=== PATIENT | male | born 1945 | race Caucasian/White ===

== ENCOUNTER 2019-01-23 11:42 | Emergency (ER) | payer MEDICARE ==
--- OUTSIDE RECORDS SUMMARY | 2019-01-23 11:45 | XMS REPORT | Clinical Summary ---
:1945 Author Organization [facility] Address [address] [place] [address] Care Team Providers Name Role Phone Shalonda Haro MD Primary Care Provider Hunter Givens Unavailable Allergies No Known Allergies Medications Medication Sig Dispensed Refills Start Date End Date Status alendronate (FOSAMAX) Take 70 mg by 0 Active 70 MG tablet mouth every 7 days Take in the morning with a full glass of water, on an empty stomach, and do not take anything else by mouth or lie down for the next 30 min. . gabapentin (NEURONTIN) Take 100 mg by 0 Active 100 MG capsule mouth 2 (two) times daily. levothyroxine Take 100 mcg by 0 Active (SYNTHROID, mouth Every LEVOTHROID) 100 MCG morning on an tablet empty stomach. lisinopril Take 20 mg by 0 Active (PRINIVIL,ZESTRIL) 20 mouth daily. MG tablet naproxen Take 220 mg by 0 Active (ALEVE,ANAPROX,MIDOL) mouth every 12 220 MG tablet (twelve) hours as needed. ketoconazole (NIZORAL) Apply topically 0 Active 2 % cream daily. aspirin 81 MG EC Take 81 mg by 0 Active tablet mouth daily. Missing or every 3 (three) 0 Active Non-Formulary months Injection Medication Elogard . minocycline (DYNACIN) Take 100 mg by 0 Active 100 MG tablet mouth 2 (two) times daily. Active Problems Problem Noted Date Carotid artery stenosis 07/22/2017 Family History Medical History Relation Name Comments Heart disease Brother Heart disease Father Stroke Sister Relation Name Status Comments Brother Father Sister Social History Tobacco Use Types Packs/Day Years Used Date Former Smoker 1 35 Quit: 2014 Smokeless Tobacco: Never Used Alcohol Use Drinks/Week oz/Week Comments No Sex Assigned at Date Recorded Not on file Job Start Date Occupation Industry Not on file Not on file Not on file Travel History Travel Start Travel End No recent travel history available. Last Filed Vital Signs Not on file Plan of Treatment Not on file Implants Implanted Type Area Lead Caster Device Shelf Model / Identifier Expiration Serial / Lot Date Grtima Hemshld Dbl William 0.3x3.0in [id number] - [id number] Graft/P Right: GETINGE 01/29/2022 [id number] / Implanted: Qty: 1 on 07/22/2017 by Lior Costa MD [facility] Arterial IND: MAQUET:CV [id number] / [id number] Results Not on fileafter 01/22/2018 Insurance Payer Benefit Plan / Group Subscriber ID Type Phone Address [employer] - MEDICARE AARP/MEDICARE COMPLETE xxxxxxxxx MGD CARE Advance Directives For more information, please contact:[address] [phone] Code Status Date Activated Date Inactivated Comments Full Code 07/22/2017 8:55 AM 07/23/2017 5:10 PM This code status was determined by: Patient Full Code 07/22/2017 6:23 AM 07/22/2017 8:55 AM This code status was determined by: Patient
--- OUTSIDE RECORDS SUMMARY | 2019-01-23 11:45 | XMS REPORT ---
:1945 Author Organization [facility] Address [address] [place] [address] [address]. M[address] [place] [address] Care Team Providers Name Role Phone GRISEL COSTA Unavailable Unavailable Problems This patient has no known problems. Allergies, Adverse Reactions, Alerts This patient has no known allergies or adverse reactions. Medications This patient has no known medications. Results Test Description Test Time Test Comments Text Results Atomic Results Result Comments TISSUE EXAM 2017-07-25 11:47:00 Surgical Pathology Report Case: [id number] Authorizing Provider: Grisel Costa MD Collected: 07/22/2017 0813 Ordering Location: [facility] Received: 07/22/2017 0955 PERIOPERATIVE SERVICES Pathologist: Fidel Lujan MD Specimen: Plaque, RIGHT CAROTID PLAQUE ARTERY, RIGHT CAROTID, ENDARTERECTOMY:CALCIFIC ATHEROSCLEROTIC PLAQUE Signing Pathologist Direct Phone Line: [phone] signed by Fidel Lujan MD on 07/25/2017 at 11:47 [id number]; [id number] carotid plaqueThe specimen is received in saline labeled with the patient's name labeled "right carotid plaque" and consists of a calcified tubular shaped segment of tissue measuring 2 cm in length x 0.8 cm in diameter. Continuous Pickling Line Pickler sections are submitted A1 for decalcification. CG/pl Carotid stenosisPerformed BASIC METABOLIC PANEL 2017-07-23 10:50:00 Test Item Value Reference Range Comments SODIUM (BEAKER) (test 138 meq/L 136-145 ggap=155) POTASSIUM (BEAKER) (test 4.3 meq/L 3.5-5.1 hvqk=213) CHLORIDE (BEAKER) (test 109 meq/L 98-107 cfhb=164) CO2 (BEAKER) (test 22 meq/L 22-29 qufd=535) BLOOD UREA NITROGEN 11 mg/dL 7-21 (BEAKER) (test wmee=425) CREATININE (BEAKER) (test 0.75 mg/dL 0.57-1.25 rpqx=790) GLUCOSE RANDOM (BEAKER) 121 mg/dL 70-105 (test qfrk=121) CALCIUM (BEAKER) (test 7.9 mg/dL 8.4-10.2 wxfd=959) EGFR (BEAKER) (test 103 mL/min/1.73 sq m ESTIMATED GFR IS NOT oxua=8799) ACCURATE CREATININE CLEARANCE IN PREDICTING GLOMERULAR FILTRATION RATE. ESTIMATED GFR IS NOT APPLICABLE FOR DIALYSIS PATIENTS. [id number] 05:55:00 Test Item Value Reference Range Comments PROTIME (BEAKER) (test wkej=653) 13.8 seconds 11.7-14.7 INR (BEAKER) (test uoub=805) 1.1 <=5.9 PARTIAL THROMBOPLASTIN TIME (BEAKER) (test 39.0 seconds 22.5-36.0 mrfz=960) RECOMMENDED COUMADIN/WARFARIN INR THERAPY RANGESSTANDARD DOSE: 2.0 - 3.0 Includes: PROPHYLAXIS forvenous thrombosis, systemic embolization; TREATMENT for venous thrombosis and/or pulmonary embolus.HIGH RISK: Target INR is 2.5-3.5 for patients with mechanical heart valves.CBC (HEMOGRAM ONLY)2017-07-23 05:47:00 Test Item Value Reference Range Comments WHITE BLOOD CELL COUNT (BEAKER) (test trog=957) 7.3 K/ L 3.5-10.5 RED BLOOD CELL COUNT (BEAKER) (test uqpd=484) 3.70 M/ L 4.63-6.08 HEMOGLOBIN (BEAKER) (test swiv=817) 11.8 GM/DL 13.7-17.5 HEMATOCRIT (BEAKER) (test koxx=466) 34.9 % 40.1-51.0 MEAN CORPUSCULAR VOLUME (BEAKER) (test ciby=614) 94.3 fL 79.0-92.2 MEAN CORPUSCULAR HEMOGLOBIN (BEAKER) (test 31.9 pg 25.7-32.2 fypp=025) MEAN CORPUSCULAR HEMOGLOBIN CONC (BEAKER) (test 33.8 GM/DL 32.3-36.5 ddqg=407) RED CELL DISTRIBUTION WIDTH (BEAKER) (test 12.7 % 11.6-14.4 jybc=929) PLATELET COUNT (BEAKER) (test iywx=823) 166 K/CU MM 150-450 MEAN PLATELET VOLUME (BEAKER) (test cxqe=013) 10.2 fL 9.4-12.4 NUCLEATED RED BLOOD CELLS (BEAKER) (test 0 /100 WBC 0-0 eyxi=096) BASIC METABOLIC [id number] 10:44:00 Test Item Value Reference Range Comments SODIUM (BEAKER) (test 141 meq/L 136-145 ppcq=608) POTASSIUM (BEAKER) (test 4.6 meq/L 3.5-5.1 jdsp=437) CHLORIDE (BEAKER) (test 111 meq/L 98-107 vbnt=442) CO2 (BEAKER) (test 21 meq/L 22-29 acxi=344) BLOOD UREA NITROGEN 12 mg/dL 7-21 (BEAKER) (test hkkm=499) CREATININE (BEAKER) (test 0.76 mg/dL 0.57-1.25 ewys=678) GLUCOSE RANDOM (BEAKER) 128 mg/dL 70-105 (test khba=221) CALCIUM (BEAKER) (test 8.0 mg/dL 8.4-10.2 rdfo=904) EGFR (BEAKER) (test 101 mL/min/1.73 sq m ESTIMATED GFR IS NOT fnzl=3377) ACCURATE CREATININE CLEARANCE IN PREDICTING GLOMERULAR FILTRATION RATE. ESTIMATED GFR IS NOT APPLICABLE FOR DIALYSIS PATIENTS. HEMOGLOBIN [id number] 09:45:00 Test Item Value Reference Range Comments HEMOGLOBIN A1C (BEAKER) (test vbkw=388) 6.1 % 4.3-6.1 CBC W/PLT COUNT & AUTO [id number] 09:23:00 Test Item Value Reference Range Comments WHITE BLOOD CELL COUNT (BEAKER) (test ncic=827) 7.9 K/ L 3.5-10.5 RED BLOOD CELL COUNT (BEAKER) (test rtnz=461) 4.12 M/ L 4.63-6.08 HEMOGLOBIN (BEAKER) (test zneu=609) 12.9 GM/DL 13.7-17.5 HEMATOCRIT (BEAKER) (test krey=430) 37.8 % 40.1-51.0 MEAN CORPUSCULAR VOLUME (BEAKER) (test xxyl=320) 91.7 fL 79.0-92.2 MEAN CORPUSCULAR HEMOGLOBIN (BEAKER) (test 31.3 pg 25.7-32.2 cjjx=701) MEAN CORPUSCULAR HEMOGLOBIN CONC (BEAKER) (test 34.1 GM/DL 32.3-36.5 klcf=141) RED CELL DISTRIBUTION WIDTH (BEAKER) (test 12.4 % 11.6-14.4 bjxq=996) PLATELET COUNT (BEAKER) (test nosq=617) 188 K/CU MM 150-450 MEAN PLATELET VOLUME (BEAKER) (test gres=477) 10.2 fL 9.4-12.4 NUCLEATED RED BLOOD CELLS (BEAKER) (test 0 /100 WBC 0-0 woyu=621) NEUTROPHILS RELATIVE PERCENT (BEAKER) (test 74 % bgap=314) LYMPHOCYTES RELATIVE PERCENT (BEAKER) (test 16 % sncb=467) MONOCYTES RELATIVE PERCENT (BEAKER) (test 7 % pdec=213) EOSINOPHILS RELATIVE PERCENT (BEAKER) (test 2 % ffkp=709) BASOPHILS RELATIVE PERCENT (BEAKER) (test 1 % lijs=840) NEUTROPHILS ABSOLUTE COUNT (BEAKER) (test 5.81 K/ L 1.78-5.38 goaq=371) LYMPHOCYTES ABSOLUTE COUNT (BEAKER) (test 1.27 K/ L 1.32-3.57 sqqn=049) MONOCYTES ABSOLUTE COUNT (BEAKER) (test 0.56 K/ L 0.30-0.82 ryyk=052) EOSINOPHILS ABSOLUTE COUNT (BEAKER) (test 0.14 K/ L 0.04-0.54 ptrc=548) BASOPHILS ABSOLUTE COUNT (BEAKER) (test 0.04 K/ L 0.01-0.08 drvl=478) IMMATURE GRANULOCYTES-RELATIVE PERCENT (BEAKER) 1 % 0-1 (test rpbg=9528) BLOOD GAS, [id number] 09:10:00 Test Item Value Reference Range Comments PH ARTERIAL (BEAKER) (test lkqx=657) 7.37 7.35-7.45 PCO2 ARTERIAL (BEAKER) (test yqpq=474) 39 mmHg 35-45 PO2 ARTERIAL (BEAKER) (test lyrz=325) 209 mmHg 80-90 O2 SATURATION ARTERIAL (BEAKER) (test tawi=435) 99.4 % 96.0-97.0 HCO3 ARTERIAL (BEAKER) (test jmcm=902) 22 mmol/L 21-29 BASE EXCESS ARTERIAL (BEAKER) (test ttio=335) -3.2 mmol/L -2.0-3.0 PATIENT TEMPERATURE (BEAKER) (test qqej=5252) 36.0 C FIO2 (BEAKER) (test nfza=1754) 40.0 % BASIC METABOLIC [id number] 10:37:00 Test Item Value Reference Range Comments SODIUM (BEAKER) (test 141 meq/L 136-145 gyhc=302) POTASSIUM (BEAKER) (test 4.4 meq/L 3.5-5.1 qmeq=071) CHLORIDE (BEAKER) (test 104 meq/L 98-107 pvau=516) CO2 (BEAKER) (test 28 meq/L 22-29 ctfo=475) BLOOD UREA NITROGEN 12 mg/dL 7-21 (BEAKER) (test sagt=342) CREATININE (BEAKER) (test 0.79 mg/dL 0.57-1.25 vzye=395) GLUCOSE RANDOM (BEAKER) 125 mg/dL 70-105 (test qeoh=463) CALCIUM (BEAKER) (test 9.3 mg/dL 8.4-10.2 szug=623) EGFR (BEAKER) (test 97 mL/min/1.73 sq m ESTIMATED GFR IS NOT djza=7807) ACCURATE CREATININE CLEARANCE IN PREDICTING GLOMERULAR FILTRATION RATE. ESTIMATED GFR IS NOT APPLICABLE FOR DIALYSIS PATIENTS. RAD, CHEST, 2 [id number] 10:21:00Reason for Exam:->Pre-OpFINAL REPORT Chest 2 views 07/21/2017 10:21 AM CLINICAL HISTORY: Pre- Op COMPARISON: None available FINDINGS: The lungs are clear. Cardiomediastinal contours are within normal limits. The central pulmonary vasculature is not engorged. The visualized skeleton is intact. IMPRESSION: No acute radiographic abnormalities. Signed: Jed Vazquez Verified Date/Time: 07/21/2017 10:21:46 Reading Location: [facility] Reading Room PROTHROMBIN [id number] 10:11:00 Test Item Value Reference Range Comments PROTIME (BEAKER) (test qjsb=664) 13.8 seconds 11.7-14.7 INR (BEAKER) (test wkvr=350) 1.1 <=5.9 RECOMMENDED COUMADIN/WARFARIN INR THERAPY RANGESSTANDARD DOSE: 2.0 - 3.0 Includes: PROPHYLAXIS forvenous thrombosis, systemic embolization; TREATMENT for venous thrombosis and/or pulmonary embolus.HIGH RISK: Target INR is 2.5-3.5 for patients with mechanical heart valves.CBC W/PLT COUNT & AUTO [id number] 10:05:00 Test Item Value Reference Range Comments WHITE BLOOD CELL COUNT (BEAKER) (test lors=533) 6.3 K/ L 3.5-10.5 RED BLOOD CELL COUNT (BEAKER) (test wxho=752) 4.69 M/ L 4.63-6.08 HEMOGLOBIN (BEAKER) (test xhvo=170) 14.6 GM/DL 13.7-17.5 HEMATOCRIT (BEAKER) (test mlbl=197) 43.2 % 40.1-51.0 MEAN CORPUSCULAR VOLUME (BEAKER) (test onhu=494) 92.1 fL 79.0-92.2 MEAN CORPUSCULAR HEMOGLOBIN (BEAKER) (test 31.1 pg 25.7-32.2 bkgw=950) MEAN CORPUSCULAR HEMOGLOBIN CONC (BEAKER) (test 33.8 GM/DL 32.3-36.5 xoeo=760) RED CELL DISTRIBUTION WIDTH (BEAKER) (test 12.6 % 11.6-14.4 wnjl=688) PLATELET COUNT (BEAKER) (test rafo=349) 224 K/CU MM 150-450 MEAN PLATELET VOLUME (BEAKER) (test rhqq=918) 10.3 fL 9.4-12.4 NUCLEATED RED BLOOD CELLS (BEAKER) (test 0 /100 WBC 0-0 wfbu=580) NEUTROPHILS RELATIVE PERCENT (BEAKER) (test 75 % byat=255) LYMPHOCYTES RELATIVE PERCENT (BEAKER) (test 16 % pial=821) MONOCYTES RELATIVE PERCENT (BEAKER) (test 7 % pbxi=835) EOSINOPHILS RELATIVE PERCENT (BEAKER) (test 1 % ncor=388) BASOPHILS RELATIVE PERCENT (BEAKER) (test 1 % mbib=209) NEUTROPHILS ABSOLUTE COUNT (BEAKER) (test 4.74 K/ L 1.78-5.38 vgrd=230) LYMPHOCYTES ABSOLUTE COUNT (BEAKER) (test 1.00 K/ L 1.32-3.57 iqar=150) MONOCYTES ABSOLUTE COUNT (BEAKER) (test 0.46 K/ L 0.30-0.82 awhx=525) EOSINOPHILS ABSOLUTE COUNT (BEAKER) (test 0.05 K/ L 0.04-0.54 gvcv=839) BASOPHILS ABSOLUTE COUNT (BEAKER) (test 0.05 K/ L 0.01-0.08 phvs=251) IMMATURE GRANULOCYTES-RELATIVE PERCENT (BEAKER) 0 % 0-1 (test kvxx=8186)
--- NOTE | 2019-01-23 12:24 | EDPHYS ---
Physician Documentation [facility] Name: Júnior Arora Age: 73 yrs Sex: Male : 1945 Arrival Date: 01/23/2019 Time: 11:43 Bed 14 Private MD: Shalonda Haro ED Physician Jorden Sahni HPI: 01/23 12:31 This 73 yrs old Male presents to ER via Ambulatory with complaints of SWOLLEN snw EAR. 12:31 Onset: The symptoms/episode began/occurred suddenly, 1 day(s) ago, and became snw persistent. Associated signs and symptoms: Pertinent positives: The patient does not have any pertinent positive signs or symptoms associated with pediatric illness. Modifying factors: The patient symptoms are alleviated by nothing. The patient has not experienced similar symptoms in the past. It is unknown whether or not the patient has recently seen a physician. Historical: - Allergies: 11:50 No Known Allergies; aa5 - PMHx: 11:50 Hypertension; Hypothyroidism; Diabetes - NIDDM; prostate cancer with radiation tx 3 aa5 years ago; - PSHx: 11:50 Carotid surgery; aa5 - Immunization history:: Flu vaccine is not up to date. - Social history:: Smoking status: Patient/guardian denies using tobacco. - Ebola Screening: : No symptoms or risks identified at this time. ROS: 12:30 Constitutional: Negative for fever, chills, and weight loss, Eyes: Negative for injury, snw pain, redness, and discharge, Neck: Negative for injury, pain, and swelling, Cardiovascular: Negative for chest pain, palpitations, and edema, Respiratory: Negative for shortness of breath, cough, wheezing, and pleuritic chest pain, Abdomen/GI: Negative for abdominal pain, nausea, vomiting, diarrhea, and constipation, Back: Negative for injury and pain, : Negative for injury, bleeding, discharge, and swelling, MS/Extremity: Negative for injury and deformity, Skin: Negative for injury, rash, and discoloration, Neuro: Negative for headache, weakness, numbness, tingling, and seizure, Psych: Negative for depression, anxiety, suicide ideation, homicidal ideation, and hallucinations. 12:30 ENT: Positive for ear pain, left ear swelling. Exam: 12:28 Constitutional: This is a well developed, well nourished patient who is awake, alert, snw and in no acute distress. Head/Face: Normocephalic, atraumatic. Eyes: Pupils equal round and reactive to light, extra-ocular motions intact. Lids and lashes normal. Conjunctiva and sclera are non-icteric and not injected. Cornea within normal limits. Periorbital areas with no swelling, redness, or edema. ENT: Nares patent. No nasal discharge, no septal abnormalities noted. Tympanic membranes are normal and external auditory canals are clear. Left pinna and auditory canal with edema, increased warmth, mild erythema. Oropharynx with no redness, swelling, or masses, exudates, or evidence of obstruction, uvula midline. Mucous membranes moist. Neck: Trachea midline, no thyromegaly or masses palpated, and no cervical lymphadenopathy. Supple, full range of motion without nuchal rigidity, or vertebral point tenderness. No Meningismus. Chest/axilla: Normal chest wall appearance and motion. Nontender with no deformity. No lesions are appreciated. Cardiovascular: Regular rate and rhythm with a normal S1 and S2. No gallops, murmurs, or rubs. Normal PMI, no JVD. No pulse deficits. Respiratory: Lungs have equal breath sounds bilaterally, clear to auscultation and percussion. No rales, rhonchi or wheezes noted. No increased work of breathing, no retractions or nasal flaring. Abdomen/GI: Soft, non-tender, with normal bowel sounds. No distension or tympany. No guarding or rebound. No evidence of tenderness throughout. Back: No spinal tenderness. No costovertebral tenderness. Full range of motion. Skin: Warm, dry with normal turgor. Normal color with no rashes, no lesions, and no evidence of cellulitis. MS/ Extremity: Pulses equal, no cyanosis. Neurovascular intact. Full, normal range of motion. Neuro: Awake and alert, GCS 15, oriented to person, place, time, and situation. Cranial nerves II-XII grossly intact. Motor strength 5/5 in all extremities. Sensory grossly intact. Cerebellar exam normal. Normal gait. Vital Signs: 11:51 BP 122 / 83; Pulse 71; Resp 16 S; Temp 97.6(O); Pulse Ox 94% on R/A; Weight 81.19 kg aa5 (R); Height 5 ft. 10 in. (177.80 cm) (R); Pain 0/10; 11:51 Body Mass Index 25.68 (81.19 kg, 177.80 cm) aa5 MDM: 11:59 Patient medically screened. live 12:27 Data reviewed: vital signs, nurses notes. Data interpreted: Pulse oximetry: on room air snw is 94 %. Interpretation: acceptable. Counseling: I had a detailed discussion with the patient and/or guardian regarding: the historical points, exam findings, and any diagnostic results supporting the discharge/admit diagnosis, the presence of at least one elevated blood pressure reading (>120/80) during this emergency department visit, lab results, the need for outpatient follow up, to return to the emergency department if symptoms worsen or persist or if there are any questions or concerns that arise at home. Special discussion: I have referred the patient to see his PCP for further evaluation of high blood pressure. Based on the history and exam findings, there is no indication for further emergent testing or inpatient evaluation. I discussed with the patient/guardian the need to see the ENT specialist for further evaluation of the symptoms. I discussed with the patient/guardian the need to see the primary care provider for further evaluation of the symptoms. Administered Medications: 12:37 Drug: Rocephin (cefTRIAXone) 1 grams Route: IM; Site: right gluteus; aa5 13:06 Follow up: Response: No adverse reaction aa5 12:37 Drug: Cipro 500 mg Route: PO; aa5 13:06 Follow up: Response: No adverse reaction aa5 12:45 Drug: [place] 5 mg-325 mg 1 tabs Route: PO; aa5 13:06 Follow up: Response: No adverse reaction aa5 Disposition: 01/23/19 12:23 Discharged to Home. Impression: Malignant otitis externa, left ear. - Condition is Stable. - Discharge Instructions: Cellulitis, Adult, Otitis Externa. - Prescriptions for cefdinir 300 mg Oral capsule - take 2 capsule by ORAL route once daily; 28 capsule. Cipro 500 mg Oral Tablet - take 1 tablet by ORAL route every 12 hours for 10 days; 20 tablet. Diclofenac Sodium 75 mg Oral Tablet, Delayed Release (E.C.) - take 1 tablet by ORAL route 2 times per day; 30 tablet. - Medication Reconciliation Form, Thank You Letter, Antibiotic Education, Prescription Opioid Use form. - Follow up: Shalonda Haro MD; When: 2 - 3 days; Reason: Recheck today's complaints, Continuance of care, Re-evaluation by your physician. Follow up: Emergency Department; When: As needed; Reason: Worsening of condition. Addendum: 01/26/2019 08:58 Co-signature as Attending Physician, Jorden Sahni MD I agree with the assessment and c kiser plan of care. Signatures: Jorden Sahni MD MD cha Therrien, Shelly, TURNER OFF-C TURNER OFF-Csnw Shakila Pena, RN RN aa5 Corrections: (The following items were deleted from the chart) 01/23 13:07 12:23 01/23/2019 12:23 Discharged to Home. Impression: Malignant otitis externa, left aa5 ear. Condition is Stable. Forms are Medication Reconciliation Form, Thank You Letter, Antibiotic Education, Prescription Opioid Use. Follow up: Shalonda Haro; When: 2 - 3 days; Reason: Recheck today's complaints, Continuance of care, Re-evaluation by your physician. Follow up: Emergency Department; When: As needed; Reason: Worsening of condition. snw
--- NOTE | 2019-01-23 12:24 | ER ---
Nurse's Notes [facility] Name: Júnior Arora Age: 73 yrs Sex: Male : 1945 Arrival Date: 01/23/2019 Time: 11:43 Bed 14 Private MD: Shalonda Haro Diagnosis: Malignant otitis externa, left ear Presentation: 01/23 11:50 Presenting complaint: Patient states: redness and swelling to left ear that began aa5 yesterday. 11:50 Transition of care: patient was not received from another setting of care. Onset of aa5 symptoms was December 2018. Risk Assessment: Do you want to hurt yourself or someone else? Patient reports no desire to harm self or others. Initial Sepsis Screen: Does the patient meet any 2 criteria? No. Patient's initial sepsis screen is negative. Does the patient have a suspected source of infection? No. Patient's initial sepsis screen is negative. Care prior to arrival: None. 11:50 Method Of Arrival: Ambulatory aa5 11:50 Acuity: JUAN PABLO 3 aa5 Historical: - Allergies: 11:50 No Known Allergies; aa5 - PMHx: 11:50 Hypertension; Hypothyroidism; Diabetes - NIDDM; prostate cancer with radiation tx 3 aa5 years ago; - PSHx: 11:50 Carotid surgery; aa5 - Immunization history:: Flu vaccine is not up to date. - Social history:: Smoking status: Patient/guardian denies using tobacco. - Ebola Screening: : No symptoms or risks identified at this time. Screenin:51 Abuse screen: Denies threats or abuse. Nutritional screening: No deficits noted. aa5 Tuberculosis screening: No symptoms or risk factors identified. Fall Risk None identified. Assessment: 11:50 General: Appears comfortable, Behavior is calm, cooperative. Pain: Denies pain. Neuro: aa5 Level of Consciousness is awake, alert, obeys commands, Oriented to person, place, time, situation. Cardiovascular: Patient's skin is warm and dry. Respiratory: Airway is patent Respiratory effort is even, unlabored, Respiratory pattern is regular, symmetrical. GI: No signs and/or symptoms were reported involving the gastrointestinal system. : No signs and/or symptoms were reported regarding the genitourinary system. EENT: redness and swelling noted to left ear . Derm: Skin is pink, warm \T\ dry. Musculoskeletal: Range of motion: intact in all extremities. 12:37 Reassessment: Patient is alert, oriented x 3, equal unlabored respirations, skin aa5 warm/dry/pink. 13:06 Reassessment: Patient is alert, oriented x 3, equal unlabored respirations, skin aa5 warm/dry/pink. Vital Signs: 11:51 BP 122 / 83; Pulse 71; Resp 16 S; Temp 97.6(O); Pulse Ox 94% on R/A; Weight 81.19 kg aa5 (R); Height 5 ft. 10 in. (177.80 cm) (R); Pain 0/10; 11:51 Body Mass Index 25.68 (81.19 kg, 177.80 cm) aa5 ED Course: 11:43 Patient arrived in ED. ag5 11:44 Shalonda Haro MD is Private Physician. ag5 11:50 Do Patino [facility]C [facility] snw 11:50 Jorden Sahni MD is Attending Physician. snw 11:50 Arm band placed on Patient placed in an exam room, on a stretcher. aa5 11:50 Patient has correct armband on for positive identification. Bed in low position. Call aa5 light in reach. Side rails up X 1. Adult w/ patient. 11:56 Shakila Pena, RN is Primary Nurse. aa5 12:14 Triage completed. aa5 12:22 Shalonda Haro MD is Referral Physician. snw 13:07 No provider procedures requiring assistance completed. Patient did not have IV access aa5 during this emergency room visit. Administered Medications: 12:37 Drug: Rocephin (cefTRIAXone) 1 grams Route: IM; Site: right gluteus; aa5 13:06 Follow up: Response: No adverse reaction aa5 12:37 Drug: Cipro 500 mg Route: PO; aa5 13:06 Follow up: Response: No adverse reaction aa5 12:45 Drug: [place] 5 mg-325 mg 1 tabs Route: PO; aa5 13:06 Follow up: Response: No adverse reaction aa5 Outcome: 12:23 Discharge ordered by . snw 13:07 Discharged to home ambulatory, with significant other. aa5 13:07 Condition: stable 13:07 Discharge instructions given to patient, Instructed on discharge instructions, follow up and referral plans. medication usage, Demonstrated understanding of instructions, follow-up care, medications, Prescriptions given X 3. 13:07 Patient left the ED. aa5 Signatures: Do Patino, SMOKEHOUSE WORKER-C SMOKEHOUSE WORKER-Csnw Shakila Pena, RN RN aa5 Lala Lizama ag5 Corrections: (The following items were deleted from the chart) 12:16 11:50 Acuity: JUAN PABLO 4 aa5 aa5
[2019-01-23] MEDS ORDERED: CEFTRIAXONE 1000 MG/VIAL ONE (12:45)
[2019-01-23] MEDS ORDERED: CIPROFLOXACIN HCL 500 MG TAB ONE (12:45)
[2019-01-23] MEDS ORDERED: LIDOCAINE 1% MPF 5 ML VIAL ONE (12:45)
[2019-01-23] MEDS ORDERED: HYDROCODONE/APAP 5/325 MG TAB ONE (12:59)
== END 2019-01-23 13:07 | disposition home or self-care (01) ==
LOC: ER 11:42
DX: H60.22 Malignant otitis externa, left ear (principal); I10 Essential (primary) hypertension; E03.9 Hypothyroidism, unspecified; E11.9 Type 2 diabetes mellitus without complications; C61 Malignant neoplasm of prostate; Z92.3 Personal history of irradiation
CPT/HCPCS: 96372; 99283

== ENCOUNTER 2019-09-16 18:46 | Emergency (ER) | payer MEDICARE ==
--- OUTSIDE RECORDS SUMMARY | 2019-09-16 18:49 | XMS REPORT ---
:1945 Author Organization [employer] Care Team Providers Name Role Phone Tahir Shalonda Provider Role Unavailable Allergies, Adverse Reactions, Alerts Substance Reaction Event Type N.K.D.A. Info Not Available Non Drug Allergy Problems Problem Type Condition Code Onset Dates Condition Status Problem Low back pain M54.5 Active Problem Other chronic pain G89.29 Active Problem Skin lesion L98.9 Active Problem Bilateral impacted cerumen H61.23 Active Assessment Rash and nonspecific skin eruption R21 Active Problem Acute right-sided thoracic back M54.6 Active pain Assessment Low back pain M54.5 Active Problem Rash and nonspecific skin eruption R21 Active Problem Prostate cancer C61 Active Problem Prostate disorder N42.9 Active Problem Essential hypertension I10 Active Problem Hypertriglyceridemia E78.1 Active Problem Hypothyroidism, unspecified type E03.9 Active Problem Atherosclerosis of both carotid I65.23 Active arteries Problem Dysphagia, unspecified type R13.10 Active Problem Osteoporosis, unspecified M81.0 Active osteoporosis type, unspecified pathological fracture presence Problem Controlled type 2 diabetes mellitus E11.9 Active without complication, without long-term current use of insulin Problem History of right-sided carotid Z98.890 Active endarterectomy Problem Vitamin D deficiency E55.9 Active Problem Hypertension, unspecified type I10 Active Problem History of prostate cancer Z85.46 Active Medications Medication Code Code Instructions Start End Status Dosage System Date Date Gabapentin [facility] 82812312626 100 mg Orally November Active 1 capsule Two times a day 15, as needed for 2019 pain Gabapentin [facility] 91819834873 100 MG Orally Active 1 capsule Twice a day as needed Bicalutamide ND 70737330563 50 MG Orally Active 1 tablet Once a day Lisinopril ND 06007943484 20 mg Orally Active 1 tablet Once a day Fish Oil ND 83343650616 1000 MG Orally Active 1 capsule Twice a day (otc) Ketoconazole ND 48312949565 2 % Externally Aug 05Sep Active 1 application Once a day 2018 11, applied to 2020 affected areas Lancets [facility] 33424013380 - as directed Sep 03, Active as directed Test BS once 2019 (dispense daily lancets formulary to insurance) Blood Glucose NDC 0 as directed Sep 03, Active as directed Test Strip Test BS once 2019 (DISPENSE daily BLOOD GLUCOSE TEST STRIPS FORMULARY TO INSURANCE) Jublia [facility] 50822622310 10 % Externally Active 1 application Once a day to affected area Multiple Vitamin ND 37927040956 - Orally Once a Active 1 tablet day Ketoconazole [facility] 13246725136 2 % Externally Active 1 application Once a day to affected area Alendronate ND 65968698487 70 MG Orally Active 1 tablet Sodium Once a week Levothyroxine ND 76814444129 100 MCG Orally Active 1 tablet on Sodium Once a day an empty stomach in the morning Metformin HCl ND 61475883516 500 MG Orally Active 1 tablet with Twice daily a meal Blood Glucose NDC 0 as directed Sep 03, Active as directed Monitor Test BS once 2019 (DISPENSE daily BLOOD GLUCOSE MONITOR FORMULARY TO INSURANCE) Results No Known Results Summary Purpose eClinicalWorks Submission
--- OUTSIDE RECORDS SUMMARY | 2019-09-16 18:49 | XMS REPORT ---
:1945 Author Organization [employer] Care Team Providers Name Role Phone Dung Haroen Provider Role Unavailable Allergies No Known Allergies Problems Problem Type Condition Code Onset Dates Condition Status Problem History of prostate cancer Z85.46 Active Problem Vitamin D deficiency E55.9 Active Problem Low back pain M54.5 Active Problem Acute right-sided thoracic back M54.6 Active pain Problem Essential hypertension I10 Active Problem Bilateral impacted cerumen H61.23 Active Problem Prostate disorder N42.9 Active Problem Other chronic pain G89.29 Active Problem Hypertriglyceridemia E78.1 Active Problem Prostate cancer C61 Active Problem Dysphagia, unspecified type R13.10 Active Problem Hypothyroidism, unspecified type E03.9 Active Problem Hypertension, unspecified type I10 Active Problem Osteoporosis, unspecified M81.0 Active osteoporosis type, unspecified pathological fracture presence Problem Atherosclerosis of both carotid I65.23 Active arteries Problem Controlled type 2 diabetes mellitus E11.9 Active without complication, without long-term current use of insulin Problem History of right-sided carotid Z98.890 Active endarterectomy Problem Skin lesion L98.9 Active Medications No Known Medications Results No Known Results Summary Purpose eClinicalWorks Submission
--- OUTSIDE RECORDS SUMMARY | 2019-09-16 18:49 | XMS REPORT ---
:1945 Author Organization [employer] Care Team Providers Name Role Phone Shalonda Haro Provider Role Unavailable Allergies No Known Allergies Problems Problem Type Condition Code Onset Dates Condition Status Problem Low back pain M54.5 Active Problem Other chronic pain G89.29 Active Problem Skin lesion L98.9 Active Problem Bilateral impacted cerumen H61.23 Active Problem Acute right-sided thoracic back M54.6 Active pain Problem Rash and nonspecific skin eruption R21 [...] Start End Status Dosage System Date Date Ketoconazole [facility] 78172410105 2 % Externally Sep 10, Oct 10, Active 1 application Once a day 2019 2019 Results No Known Results Summary Purpose eClinicalWorks Submission
--- OUTSIDE RECORDS SUMMARY | 2019-09-16 18:49 | XMS REPORT ---
:1945 [facility] [address] [place] [address] [address] [place] [address] Care Team Providers Name Role Phone GRISEL COSTA Unavailable Unavailable Problems This patient has no known problems. Allergies, Adverse Reactions, Alerts This patient has no known allergies or adverse reactions. Medications This patient has no known medications. Results Test Description Test Time Test Comments Text Results Atomic Results Result Comments TISSUE EXAM 2017-07-25 11:47:00 Surgical Pathology Report Case: [id number] Authorizing Provider: Grisel Costa MD Collected: 07/22/2017 0813 Ordering Location: [facility] Received: 07/22/2017 0955 [facility]OPER[facility] Pathologist: Fidel Lujan MD Specimen: Plaque, RIGHT CAROTID PLAQUE ARTERY, RIGHT CAROTID, ENDARTERECTOMY:CALCIFIC ATHEROSCLEROTIC PLAQUE Signing Pathologist Direct Phone Line: [phone] signed by Fidel Lujan MD on 07/25/2017 at 11:47 [id number]; [id number] carotid plaqueThe specimen is received in saline labeled with the patient's name labeled "right carotid plaque" and consists of a calcified tubular shaped segment of tissue measuring 2 cm in length x 0.8 cm in diameter. [employer] sections are submitted A1 for decalcification. CG/pl Carotid stenosisPerformed BASIC METABOLIC PANEL 2017-07-23 10:50:00 Test Item Value Reference Range Comments SODIUM (BEAKER) (test 138 meq/L 136-145 ipdv=067) POTASSIUM (BEAKER) (test 4.3 meq/L 3.5-5.1 rsry=089) CHLORIDE (BEAKER) (test 109 meq/L 98-107 lsex=904) CO2 (BEAKER) (test 22 meq/L 22-29 lyaa=821) BLOOD UREA NITROGEN 11 mg/dL 7-21 (BEAKER) (test gemf=471) CREATININE (BEAKER) (test 0.75 mg/dL 0.57-1.25 dpfi=815) GLUCOSE RANDOM (BEAKER) 121 mg/dL 70-105 (test zglf=377) CALCIUM (BEAKER) (test 7.9 mg/dL 8.4-10.2 hcui=811) EGFR (BEAKER) (test 103 mL/min/1.73 sq m ESTIMATED GFR IS NOT tdlx=6887) ACCURATE CREATININE CLEARANCE IN PREDICTING GLOMERULAR FILTRATION RATE. ESTIMATED GFR IS NOT APPLICABLE FOR DIALYSIS PATIENTS. [id number] 05:55:00 Test Item Value Reference Range Comments PROTIME (BEAKER) (test rrtt=591) 13.8 seconds 11.7-14.7 INR (BEAKER) (test mwqy=408) 1.1 <=5.9 PARTIAL THROMBOPLASTIN TIME (BEAKER) (test 39.0 seconds 22.5-36.0 tobj=733) RECOMMENDED COUMADIN/WARFARIN INR THERAPY RANGESSTANDARD DOSE: 2.0 - 3.0 Includes: PROPHYLAXIS forvenous thrombosis, systemic embolization; TREATMENT for venous thrombosis and/or pulmonary embolus.HIGH RISK: Target INR is 2.5-3.5 for patients with mechanical heart valves.CBC (HEMOGRAM ONLY)2017-07-23 05:47:00 Test Item Value Reference Range Comments WHITE BLOOD CELL COUNT (BEAKER) (test ejvr=652) 7.3 K/ L 3.5-10.5 RED BLOOD CELL COUNT (BEAKER) (test hcqi=854) 3.70 M/ L 4.63-6.08 HEMOGLOBIN (BEAKER) (test aban=148) 11.8 GM/DL 13.7-17.5 HEMATOCRIT (BEAKER) (test wdvy=295) 34.9 % 40.1-51.0 MEAN CORPUSCULAR VOLUME (BEAKER) (test odlm=664) 94.3 fL 79.0-92.2 MEAN CORPUSCULAR HEMOGLOBIN (BEAKER) (test 31.9 pg 25.7-32.2 igvs=282) MEAN CORPUSCULAR HEMOGLOBIN CONC (BEAKER) (test 33.8 GM/DL 32.3-36.5 fkuj=918) RED CELL DISTRIBUTION WIDTH (BEAKER) (test 12.7 % 11.6-14.4 imis=314) PLATELET COUNT (BEAKER) (test lfdm=935) 166 K/CU MM 150-450 MEAN PLATELET VOLUME (BEAKER) (test thak=568) 10.2 fL 9.4-12.4 NUCLEATED RED BLOOD CELLS (BEAKER) (test 0 /100 WBC 0-0 hbct=791) BASIC METABOLIC [id number] 10:44:00 Test Item Value Reference Range Comments SODIUM (BEAKER) (test 141 meq/L 136-145 njbz=460) POTASSIUM (BEAKER) (test 4.6 meq/L 3.5-5.1 lrkd=517) CHLORIDE (BEAKER) (test 111 meq/L 98-107 efit=980) CO2 (BEAKER) (test 21 meq/L 22-29 pgyb=975) BLOOD UREA NITROGEN 12 mg/dL 7-21 (BEAKER) (test hjta=634) CREATININE (BEAKER) (test 0.76 mg/dL 0.57-1.25 jxoa=307) GLUCOSE RANDOM (BEAKER) 128 mg/dL 70-105 (test auet=090) CALCIUM (BEAKER) (test 8.0 mg/dL 8.4-10.2 grug=939) EGFR (BEAKER) (test 101 mL/min/1.73 sq m ESTIMATED GFR IS NOT dujw=4751) ACCURATE CREATININE CLEARANCE IN PREDICTING GLOMERULAR FILTRATION RATE. ESTIMATED GFR IS NOT APPLICABLE FOR DIALYSIS PATIENTS. HEMOGLOBIN [id number] 09:45:00 Test Item Value Reference Range Comments HEMOGLOBIN A1C (BEAKER) (test nhox=769) 6.1 % 4.3-6.1 CBC W/PLT COUNT & AUTO [id number] 09:23:00 Test Item Value Reference Range Comments WHITE BLOOD CELL COUNT (BEAKER) (test gcrm=887) 7.9 K/ L 3.5-10.5 RED BLOOD CELL COUNT (BEAKER) (test hbwt=835) 4.12 M/ L 4.63-6.08 HEMOGLOBIN (BEAKER) (test dugk=019) 12.9 GM/DL 13.7-17.5 HEMATOCRIT (BEAKER) (test vbni=604) 37.8 % 40.1-51.0 MEAN CORPUSCULAR VOLUME (BEAKER) (test dmkn=280) 91.7 fL 79.0-92.2 MEAN CORPUSCULAR HEMOGLOBIN (BEAKER) (test 31.3 pg 25.7-32.2 ctdj=682) MEAN CORPUSCULAR HEMOGLOBIN CONC (BEAKER) (test 34.1 GM/DL 32.3-36.5 twxh=914) RED CELL DISTRIBUTION WIDTH (BEAKER) (test 12.4 % 11.6-14.4 mcgq=539) PLATELET COUNT (BEAKER) (test fvmr=392) 188 K/CU MM 150-450 MEAN PLATELET VOLUME (BEAKER) (test cbht=596) 10.2 fL 9.4-12.4 NUCLEATED RED BLOOD CELLS (BEAKER) (test 0 /100 WBC 0-0 ttwy=208) NEUTROPHILS RELATIVE PERCENT (BEAKER) (test 74 % iaet=376) LYMPHOCYTES RELATIVE PERCENT (BEAKER) (test 16 % dxep=864) MONOCYTES RELATIVE PERCENT (BEAKER) (test 7 % etob=059) EOSINOPHILS RELATIVE PERCENT (BEAKER) (test 2 % sliy=993) BASOPHILS RELATIVE PERCENT (BEAKER) (test 1 % wbxp=377) NEUTROPHILS ABSOLUTE COUNT (BEAKER) (test 5.81 K/ L 1.78-5.38 azby=982) LYMPHOCYTES ABSOLUTE COUNT (BEAKER) (test 1.27 K/ L 1.32-3.57 jwps=853) MONOCYTES ABSOLUTE COUNT (BEAKER) (test 0.56 K/ L 0.30-0.82 kfxb=308) EOSINOPHILS ABSOLUTE COUNT (BEAKER) (test 0.14 K/ L 0.04-0.54 mkkg=676) BASOPHILS ABSOLUTE COUNT (BEAKER) (test 0.04 K/ L 0.01-0.08 jhdt=367) IMMATURE GRANULOCYTES-RELATIVE PERCENT (BEAKER) 1 % 0-1 (test vsvt=4975) BLOOD GAS, [id number] 09:10:00 Test Item Value Reference Range Comments PH ARTERIAL (BEAKER) (test xkbo=818) 7.37 7.35-7.45 PCO2 ARTERIAL (BEAKER) (test ncnt=005) 39 mmHg 35-45 PO2 ARTERIAL (BEAKER) (test cdnx=556) 209 mmHg 80-90 O2 SATURATION ARTERIAL (BEAKER) (test qbjl=147) 99.4 % 96.0-97.0 HCO3 ARTERIAL (BEAKER) (test ddxz=647) 22 mmol/L 21-29 BASE EXCESS ARTERIAL (BEAKER) (test mkgy=612) -3.2 mmol/L -2.0-3.0 PATIENT TEMPERATURE (BEAKER) (test nslx=1391) 36.0 C FIO2 (BEAKER) (test hajb=2992) 40.0 % BASIC METABOLIC [id number] 10:37:00 Test Item Value Reference Range Comments SODIUM (BEAKER) (test 141 meq/L 136-145 udnu=537) POTASSIUM (BEAKER) (test 4.4 meq/L 3.5-5.1 ullk=344) CHLORIDE (BEAKER) (test 104 meq/L 98-107 tayx=921) CO2 (BEAKER) (test 28 meq/L 22-29 bsaz=020) BLOOD UREA NITROGEN 12 mg/dL 7-21 (BEAKER) (test qoza=266) CREATININE (BEAKER) (test 0.79 mg/dL 0.57-1.25 qvxd=582) GLUCOSE RANDOM (BEAKER) 125 mg/dL 70-105 (test dnio=131) CALCIUM (BEAKER) (test 9.3 mg/dL 8.4-10.2 znsh=541) EGFR (BEAKER) (test 97 mL/min/1.73 sq m ESTIMATED GFR IS NOT dpgp=1464) ACCURATE CREATININE CLEARANCE IN PREDICTING GLOMERULAR FILTRATION RATE. ESTIMATED GFR IS NOT APPLICABLE FOR DIALYSIS PATIENTS. RAD, CHEST, 2 [id number] 10:21:00Reason for Exam:->Pre-OpFINAL REPORT Chest 2 views 07/21/2017 10:21 AM CLINICAL HISTORY: Pre- Op COMPARISON: None available FINDINGS: The lungs are clear. Cardiomediastinal contours are within normal limits. The central pulmonary vasculature is not engorged. The visualized skeleton is intact. IMPRESSION: No acute radiographic abnormalities. Signed: Jed Vazquez Verified Date/Time: 07/21/2017 10:21:46 Reading Location: [facility] Radiology Reading Room PROTHROMBIN [id number] 10:11:00 Test Item Value Reference Range Comments PROTIME (BEAKER) (test jnup=326) 13.8 seconds 11.7-14.7 INR (BEAKER) (test divh=975) 1.1 <=5.9 RECOMMENDED COUMADIN/WARFARIN INR THERAPY RANGESSTANDARD DOSE: 2.0 - 3.0 Includes: PROPHYLAXIS forvenous thrombosis, systemic embolization; TREATMENT for venous thrombosis and/or pulmonary embolus.HIGH RISK: Target INR is 2.5-3.5 for patients with mechanical heart valves.CBC W/PLT COUNT & AUTO [id number] 10:05:00 Test Item Value Reference Range Comments WHITE BLOOD CELL COUNT (BEAKER) (test wpmf=394) 6.3 K/ L 3.5-10.5 RED BLOOD CELL COUNT (BEAKER) (test jtjq=229) 4.69 M/ L 4.63-6.08 HEMOGLOBIN (BEAKER) (test kyou=981) 14.6 GM/DL 13.7-17.5 HEMATOCRIT (BEAKER) (test ppyb=262) 43.2 % 40.1-51.0 MEAN CORPUSCULAR VOLUME (BEAKER) (test nczl=820) 92.1 fL 79.0-92.2 MEAN CORPUSCULAR HEMOGLOBIN (BEAKER) (test 31.1 pg 25.7-32.2 osid=215) MEAN CORPUSCULAR HEMOGLOBIN CONC (BEAKER) (test 33.8 GM/DL 32.3-36.5 yaxq=394) RED CELL DISTRIBUTION WIDTH (BEAKER) (test 12.6 % 11.6-14.4 jomm=421) PLATELET COUNT (BEAKER) (test sidm=456) 224 K/CU MM 150-450 MEAN PLATELET VOLUME (BEAKER) (test elmo=180) 10.3 fL 9.4-12.4 NUCLEATED RED BLOOD CELLS (BEAKER) (test 0 /100 WBC 0-0 ukvo=536) NEUTROPHILS RELATIVE PERCENT (BEAKER) (test 75 % nzao=442) LYMPHOCYTES RELATIVE PERCENT (BEAKER) (test 16 % gvid=900) MONOCYTES RELATIVE PERCENT (BEAKER) (test 7 % ydcl=193) EOSINOPHILS RELATIVE PERCENT (BEAKER) (test 1 % lkpv=701) BASOPHILS RELATIVE PERCENT (BEAKER) (test 1 % ojst=575) NEUTROPHILS ABSOLUTE COUNT (BEAKER) (test 4.74 K/ L 1.78-5.38 negs=256) LYMPHOCYTES ABSOLUTE COUNT (BEAKER) (test 1.00 K/ L 1.32-3.57 pknm=166) MONOCYTES ABSOLUTE COUNT (BEAKER) (test 0.46 K/ L 0.30-0.82 tfwq=873) EOSINOPHILS ABSOLUTE COUNT (BEAKER) (test 0.05 K/ L 0.04-0.54 ikyy=924) BASOPHILS ABSOLUTE COUNT (BEAKER) (test 0.05 K/ L 0.01-0.08 cbwy=487) IMMATURE GRANULOCYTES-RELATIVE PERCENT (BEAKER) 0 % 0-1 (test ewqt=2836)
[2019-09-16] MEDS ORDERED: NA CHLORIDE 0.9% 500 ML ONE (19:48)
[2019-09-16] MEDS ORDERED: ONDANSETRON 4 MG/2 ML VIAL ONE (19:48)
[2019-09-16 19:54] LABS: Absolute Lymphocytes (CBC) 1.3 K/uL (0.7-4.9); Hematocrit 47.6 % (39.6-49.0); Lymphocytes % 12.5 % (15.3-44.8); MPV 8.5 fL (7.6-11.3)
[2019-09-16 20:15] LABS: Albumin 4.8 g/dL (3.4-5.0); Bilirubin Direct 0.1 mg/dL (0-0.2); Bilirubin Total 0.5 mg/dL (0.2-1.0); Potassium 3.9 mmol/L (3.5-5.1); Protein, Total 8.6 g/dL (6.4-8.2)
--- NOTE | 2019-09-16 20:30 | RAD REPORT ---
EXAM DESCRIPTION: CT - Abdomen Pelvis W Contrast - 09/16/2019 8:13 pm CLINICAL HISTORY: vomiting/regurgitatingabdominal pain, history prostate cancer radiation COMPARISON: Abdomen Pelvis W Contrast dated 12/15/2018; Abdomen Pelvis W Contrast dated 10/03/2016 TECHNIQUE: Biphasic, helical CT imaging of the abdomen and pelvis was performed following 100 ml non -ionic IV contrast. No oral contrast. All CT scans are performed using dose optimization technique as appropriate and may include automated exposure control or mA/KV adjustment according to patient size. FINDINGS: No suspicious findings in the lung bases. The liver, spleen, and pancreas show no suspicious findings. Small cyst midline left lobe liver has n ot changed from comparison. Gallbladder and biliary tree are also without suspicious finding. Gallsto cristiana can be occult on CT imaging. Granulomatous calcifications are present in the spleen. Symmetric renal function is seen with no hydronephrosis or suspicious renal mass. No pyelonephritis o r acute parenchymal process. No bladder abnormalities. No adrenal abnormalities. No dilated bowel loops or bowel wall thickening. Moderate stool volume is present throughout the colo n. Appendix is normal. No acute colon process. No free air, free fluid or inflammatory stranding. No mass or bulky lymphadenopathy. Patient has a very small fat only umbilical hernia that is stable. Disc and bony degenerative changes are present. No acute or pathologic process. Prominent aortoiliac atherosclerotic calcifications are present. There is minimal aneurysmal dilatation of the distal abdo andrea aorta unchanged from prior imaging. IMPRESSION: Contrast enhanced CT abdomen and pelvis imaging shows no acute or emergent finding.
[2019-09-16] MEDS ORDERED: PROMETHAZINE INJ 25 MG/ML AMP ONE (20:47)
--- NOTE | 2019-09-16 21:58 | ER ---
Nurse's Notes [facility] Name: Júnior Arora Age: 74 yrs Sex: Male : 1945 Arrival Date: 09/16/2019 Time: 18:48 Bed 18 Private MD: Shalonda Haro Diagnosis: Vomiting Presentation: 09/16 19:05 Presenting complaint: Patient states: nausea vomiting since 1230 today. well more ph nausea and spit. took an acid figure skater and it didn't help. Transition of care: patient was not received from another setting of care. Onset of symptoms was September 16, 2019 at 12:30. Risk Assessment: Do you want to hurt yourself or someone else? Patient reports no desire to harm self or others. Initial Sepsis Screen: Does the patient meet any 2 criteria? No. Patient's initial sepsis screen is negative. Does the patient have a suspected source of infection? No. Patient's initial sepsis screen is negative. Care prior to arrival: None. 19:05 Method Of Arrival: Ambulatory ph 19:05 Acuity: JUAN PABLO 3 ph Triage Assessment: 19:06 General: Appears in no apparent distress. uncomfortable. General: Behavior is calm, ph cooperative, appropriate for age. Pain:. Pain: Complains of pain in epigastric area Pain currently is 3 out of 10 on a pain scale. GI: Reports nausea. Historical: - Allergies: 19:58 No Known Allergies; ch - Home Meds: 20:54 levothyroxine 100 mcg tab 1 tab once daily [Active]; lisinopril 20 mg Oral tab 1 tab ch once daily [Active]; alendronate 70 mg oral tab 1 tab once wkly [Active]; gabapentin 100 mg oral cap [Active]; omeprazole 40 mg Oral cpDR 1 cap once daily [Active]; Vitamin D Oral [Active]; Caltrate 600 + D 600 mg (1,500 mg)-800 unit oral chew [Active]; metformin 500 mg Oral Tb24 [Active]; bicalutamide 50 mg oral tab 1 tab once daily [Active]; - PMHx: 19:06 prostate cancer with radiation tx 3 years ago; Diabetes - NIDDM; Hypertension; ph Hypothyroidism; 20:54 esophageal stricture; ch - PSHx: 19:06 Carotid surgery; ph 20:54 esophageal dialation; ch - Immunization history:: Adult Immunizations up to date, Flu vaccine is not up to date. It has been more than one year since last vaccine. - Social history:: Smoking status: Patient/guardian denies using tobacco, Patient/guardian denies using alcohol, street drugs. - Ebola Screening: : Patient negative for fever greater than or equal to 101.5 degrees Fahrenheit, and additional compatible Ebola Virus Disease symptoms Patient denies exposure to infectious person Patient denies travel to an Ebola-affected area in the 21 days before illness onset No symptoms or risks identified at this time. Screenin:58 Abuse screen: Denies threats or abuse. Denies injuries from another. Nutritional ch screening: No deficits noted. Tuberculosis screening: No symptoms or risk factors identified. Fall Risk None identified. Assessment: 19:57 Reassessment: Patient appears in no apparent distress at this time. Patient and/or ch family updated on plan of care and expected duration. Pain level reassessed. Patient is alert, oriented x 3, equal unlabored respirations, skin warm/dry/pink. Pain:. Neuro: No deficits noted. Cardiovascular: Denies chest pain. GI: Abdomen is round non-distended, Bowel sounds present X 4 quads. Abd is soft and non tender Reports upper abdominal pain, gaseousness, nausea, vomiting. : No signs and/or symptoms were reported regarding the genitourinary system. Derm: Skin is intact, is fragile, Skin is dry, Skin is pale. 20:29 Reassessment: Patient appears in no apparent distress at this time. No changes from previously documented assessment. Patient and/or family updated on plan of care and expected duration. Pain level reassessed. Patient is alert, oriented x 3, equal unlabored respirations, skin warm/dry/pink. 20:49 Reassessment: Patient appears in no apparent distress at this time. Patient and/or ch family updated on plan of care and expected duration. Pain level reassessed. Patient is alert, oriented x 3, equal unlabored respirations, skin warm/dry/pink. pt is still spitting up in room. not vomiting any more. states he feels very nauseous still. Keon notified, medicated per orders. 21:51 Reassessment: Patient appears in no apparent distress at this time. Patient and/or ch family updated on plan of care and expected duration. Pain level reassessed. Patient is alert, oriented x 3, equal unlabored respirations, skin warm/dry/pink. pt states he drank a whole cup of water and has not vomited/spit up since. Keon notified. 22:05 Reassessment: Patient appears in no apparent distress at this time. Patient and/or ch family updated on plan of care and expected duration. Pain level reassessed. Patient is alert, oriented x 3, equal unlabored respirations, skin warm/dry/pink. Patient states feeling better. Patient states symptoms have improved. Vital Signs: 19:06 BP 189 / 97; Pulse 86; Resp 16; Temp 98; Pulse Ox 98% ; Weight 81.65 kg; Height 5 ft. ph 10 in. (177.80 cm); Pain 3/10; 20:29 BP 183 / 91; Pulse 82; Resp 16; Pulse Ox 99% on R/A; ch 21:51 BP 153 / 84; Pulse 73; Resp 16; Temp 98.8; Pulse Ox 99% on R/A; Pain 3/10; ch 19:06 Body Mass Index 25.83 (81.65 kg, 177.80 cm) ph ED Course: 18:48 Patient arrived in ED. ag5 18:48 Shalonda Haro MD is Private Physician. ag5 19:06 Triage completed. ph 19:06 Arm band placed on left wrist. Patient placed in an exam room, on a stretcher. ph 19:14 Keon Rubalcava FNP-C is [facility]. la1 19:14 John David MD is Attending Physician. la1 19:14 Kem Joyner MD is Attending Physician. la1 19:40 No provider procedures requiring assistance completed. Initial lab(s) drawn, by sd, jose de jesus sent to lab. Inserted saline lock: 20 gauge in left antecubital area, using aseptic technique. Blood collected. 19:57 Karine Navarrete, RN is Primary Nurse. 19:58 Patient has correct armband on for positive identification. Bed in low position. Call light in reach. Side rails up X 1. Adult w/ patient. Pulse ox on. NIBP on. 20:15 CT Abd/Pelvis - IV Contrast Only In Process Unspecified. EDMS 21:20 PO fluids given. given by Keon Mars 21:57 Ar Silverio MD is Referral Physician. la1 22:05 No apparent distress. Resting quietly. ch 22:05 IV discontinued, intact, bleeding controlled, No redness/swelling at site. Pressure ch dressing applied. Administered Medications: 19:42 Drug: Zofran 4 mg Route: IVP; Site: left antecubital; ch 20:51 Follow up: Response: No adverse reaction; No change in condition 19:45 Drug: NS 0.9% 500 ml Route: IV; Rate: bolus; Site: left antecubital; ch 20:51 Follow up: IV Status: Completed infusion; IV Intake: 500ml ch 20:40 Drug: Phenergan 12.5 mg Route: IVP; Site: left antecubital; ch 20:50 Follow up: Response: No adverse reaction; diluted in ns 100, run in over 10 min. pt ch tolerated well. this finishes pt 500mL bolus Intake: 20:51 IV: 500ml; Total: 500ml. Outcome: 21:57 Discharge ordered by . la1 22:05 Discharged to home ambulatory, with family. 22:05 Condition: improved 22:05 Discharge instructions given to patient, family, Instructed on discharge instructions, follow up and referral plans. medication usage, Demonstrated understanding of instructions, follow-up care, medications, Prescriptions given X 1. 22:06 Patient left the ED. Signatures: Dispatcher [employer] Karine Zhao RN RN ch Attema, Lee, EXECUTIVE CONSULTANT-C EXECUTIVE CONSULTANT-[facility]1 Tanisha Deras RN RN Dl, [facility]5
--- NOTE | 2019-09-16 21:58 | EDPHYS ---
Physician Documentation [facility] Name: Júnior Arora Age: 74 yrs Sex: Male : 1945 Arrival Date: 09/16/2019 Time: 18:48 Bed 18 Private MD: Shalonda Haro ED Physician Kem Joyner HPI: 09/16 19:35 This 74 yrs old Male presents to ER via Ambulatory with complaints of la1 Vomiting. 19:35 Onset: The symptoms/episode began/occurred at 12:30. Possible causes: unknown. The la1 symptoms are aggravated by food , The symptoms are alleviated by nothing. Associated signs and symptoms: Pertinent positives: vomiting. Severity of symptoms: At their worst the symptoms were moderate. The patient has experienced a previous episode. pt reports that since 1230 he has not been able to tolerate any fluids by mouth, seems to regurgitate or vomit minutes after eating or drinking anything. Has had similar problem in the past a few years ago and had to have an esophageal stricture dilated. . Historical: - Allergies: 19:58 No Known Allergies; ch - Home Meds: 20:54 levothyroxine 100 mcg tab 1 tab once daily [Active]; lisinopril 20 mg Oral tab 1 tab ch once daily [Active]; alendronate 70 mg oral tab 1 tab once wkly [Active]; gabapentin 100 mg oral cap [Active]; omeprazole 40 mg Oral cpDR 1 cap once daily [Active]; Vitamin D Oral [Active]; Caltrate 600 + D 600 mg (1,500 mg)-800 unit oral chew [Active]; metformin 500 mg Oral Tb24 [Active]; bicalutamide 50 mg oral tab 1 tab once daily [Active]; - PMHx: 19:06 prostate cancer with radiation tx 3 years ago; Diabetes - NIDDM; Hypertension; ph Hypothyroidism; 20:54 esophageal stricture; ch - PSHx: 19:06 Carotid surgery; ph 20:54 esophageal dialation; ch - Immunization history:: Adult Immunizations up to date, Flu vaccine is not up to date. It has been more than one year since last vaccine. - Social history:: Smoking status: Patient/guardian denies using tobacco, Patient/guardian denies using alcohol, street drugs. - Ebola Screening: : Patient negative for fever greater than or equal to 101.5 degrees Fahrenheit, and additional compatible Ebola Virus Disease symptoms Patient denies exposure to infectious person Patient denies travel to an Ebola-affected area in the 21 days before illness onset No symptoms or risks identified at this time. ROS: 19:36 Constitutional: Negative for fever, chills, and weight loss, Eyes: Negative for injury, la1 pain, redness, and discharge, ENT: Negative for injury, pain, and discharge, Cardiovascular: Negative for chest pain, palpitations, and edema, Respiratory: Negative for shortness of breath, cough, wheezing, and pleuritic chest pain. 19:36 Back: Negative for injury and pain, : Negative for injury, bleeding, discharge, and swelling, Skin: Negative for injury, rash, and discoloration, Neuro: Negative for headache, weakness, numbness, tingling, and seizure. 19:36 Abdomen/GI: Positive for vomiting. Exam: 19:36 Constitutional: This is a well developed, well nourished patient who is awake, alert, la1 and in no acute distress. Head/Face: Normocephalic, atraumatic. Eyes: Pupils equal round and reactive to light, extra-ocular motions intact. Periorbital areas with no swelling, redness, or edema. Neck: Trachea midline, no thyromegaly or masses palpated, and no cervical lymphadenopathy. Supple, full range of motion without nuchal rigidity, or vertebral point tenderness. No Meningismus. Chest/axilla: Normal chest wall appearance and motion. Nontender with no deformity. No lesions are appreciated. Cardiovascular: Regular rate and rhythm with a normal S1 and S2. No gallops, murmurs, or rubs. Normal PMI, no JVD. No pulse deficits. Respiratory: Lungs have equal breath sounds bilaterally, clear to auscultation . No rales, rhonchi or wheezes noted. No increased work of breathing, no retractions or nasal flaring. Abdomen/GI: Soft, non-tender, with normal bowel sounds. No guarding or rebound. No evidence of tenderness throughout. Back: No spinal tenderness. No costovertebral tenderness. Full range of motion. MS/ Extremity: Pulses equal, no cyanosis. Neurovascular intact. Full, normal range of motion. Vital Signs: 19:06 BP 189 / 97; Pulse 86; Resp 16; Temp 98; Pulse Ox 98% ; Weight 81.65 kg; Height 5 ft. ph 10 in. (177.80 cm); Pain 3/10; 20:29 BP 183 / 91; Pulse 82; Resp 16; Pulse Ox 99% on R/A; ch 21:51 BP 153 / 84; Pulse 73; Resp 16; Temp 98.8; Pulse Ox 99% on R/A; Pain 3/10; ch 19:06 Body Mass Index 25.83 (81.65 kg, 177.80 cm) ph MDM: 19:14 Patient medically screened. la1 21:33 Data reviewed: vital signs, nurses notes, lab test result(s), radiologic studies. Data la1 interpreted: Pulse oximetry: on room air is 99 %. Interpretation: normal. Counseling: I had a detailed discussion with the patient and/or guardian regarding: the historical points, exam findings, and any diagnostic results supporting the discharge/admit diagnosis, lab results, radiology results. 21:55 ED course: After the nausea medications pt now able to tolerate fluids PO, discussed la1 case with Dr. Deana Schwartz but he is unable to be of assistance at this time, offered to attempt transfer to [facility] but pt deferred, states he feels much better now and would like to try to go home and see if he does better, pt states he will call the GI doctor in the morning and given strict return precautions. . 21:57 Medication response: Phenergan markedly relieved the patient's nausea. Response to la1 treatment: the patient's symptoms have markedly improved after treatment. Special discussion: Based on the patient's Hx, exam, and Dx evaluation, there is no indication for emergent surgery or inpatient Tx. It is understood by the patient/guardian that if the Sx's persist or worsen they need to return immediately for re-evaluation. Based on the history and exam findings, there is no indication for further emergent testing or inpatient evaluation. 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 09/16 19:32 Order name: Basic Metabolic Panel; Complete Time: 20:42 la1 09/16 19:32 Order name: CBC with Diff; Complete Time: 20:09 la1 09/16 19:32 Order name: Creatinine for Radiology; Complete Time: 20:42 la1 16 19:32 Order name: Hepatic Function; Complete Time: 20:42 09/16 19:32 Order name: Lipase; Complete Time: 20:42 09/16 19:32 Order name: CT Abd/Pelvis - IV Contrast Only; Complete Time: 20:42 09/16 19:32 Order name: IV Saline Lock; Complete Time: 19:59 09/16 19:32 Order name: Labs collected and sent; Complete Time: 19:59 la Administered Medications: 19:42 Drug: Zofran 4 mg Route: IVP; Site: left antecubital; ch 20:51 Follow up: Response: No adverse reaction; No change in condition ch 19:45 Drug: NS 0.9% 500 ml Route: IV; Rate: bolus; Site: left antecubital; ch 20:51 Follow up: IV Status: Completed infusion; IV Intake: 500ml ch 20:40 Drug: Phenergan 12.5 mg Route: IVP; Site: left antecubital; ch 20:50 Follow up: Response: No adverse reaction; diluted in ns 100, run in over 10 min. pt ch tolerated well. this finishes pt 500mL bolus Disposition: 09/17 07:35 Co-signature as Attending Physician, Kem Joyner MD I agree with the assessment and tw4 plan of care. Disposition: 09/16/19 21:57 Discharged to Home. Impression: Vomiting. - Condition is Stable. - Discharge Instructions: Esophageal Spasm, Esophageal Stricture, Nausea and Vomiting, Adult, Nausea and Vomiting, Adult, [id number]. - Prescriptions for Zofran 4 mg Oral Tablet - take 1 tablet by ORAL route every 12 hours As needed; 20 tablet. - Medication Reconciliation Form, Thank You Letter form. - Follow up: Ar Silverio MD; Reason: Recheck today's complaints, Re-evaluation by your physician. Follow up: Emergency Department; When: As needed. Signatures: Dispatcher [employer] EDMS Karine Navarrete, RN RN ch Keon Rubalcava, GLUER MACHINE SETUP OPERATOR-C GLUER MACHINE SETUP OPERATOR-[facility]1 Tanisha Deras RN RN Kem Persaud MD MD tw4 Corrections: (The following items were deleted from the chart) 09/16 21:57 21:33 ED course: Pt continues to spit up/vomit throughout ED stay what appears to be la1 clear sputum and water. . la1 22:06 21:57 09/16/2019 21:57 Discharged to Home. Impression: Vomiting. Condition is Stable. ch Forms are Medication Reconciliation Form, Thank You Letter, Antibiotic Education, Prescription Opioid Use. Follow up: Ar Silverio; Reason: Recheck today's complaints, Re-evaluation by your physician. Follow up: Emergency Department; When: As needed. la1
== END 2019-09-16 22:06 | disposition home or self-care (01) ==
LOC: ER 18:46
DX: R11.2 Nausea with vomiting, unspecified (principal); E11.9 Type 2 diabetes mellitus without complications; I10 Essential (primary) hypertension; E03.9 Hypothyroidism, unspecified; Z85.46 Personal history of malignant neoplasm of prostate
CPT/HCPCS: 96361; 85025; 80048; 36415; 80076; 83690; 74177; 96375; 96374; 99284; Q9967; J2550; J7040; J2405

== ENCOUNTER 2023-08-04 06:45 | Emergency (ER) | payer OTHER ==
--- OUTSIDE RECORDS SUMMARY | 2023-08-04 06:50 | XMS REPORT | Continuity of Care Document ---
:1945 Author Organization [facility] t Address [address] [facility] [address] [place] [address] Care Team Providers Name Role Phone Shalonda Haro MD Primary Care Physician [phone] Maribel Ken Attending Clinician Unavailable Shalonda Haro Attending Clinician Unavailable GRISEL COSTA Attending Clinician Unavailable GRISEL COSTA Admitting Clinician Unavailable Payers Payer Name Policy Type Policy Number Effective Date Expiration Date Caprice [place] Medicare 53 [id number] Common Spir it Complete - [facility] Problems Condition Condition Condition Status Onset Resolution Last Treating Co mments Source Name Details Category Date Date Treatment Clinician Date Carotid Carotid Disease Active 2016-[address] artery [facility] stenosis stenosis [facility]: Medica l 00 Center [id number] Type 2 Problem Common diabetes Spirit mellitus - [facility] with [facility] without Center long-term current use of insulin [id number] Controlled Problem Co mmon type 2 Spirit diabetes - CHI mellitus [facility] without [facility] complicati Medica l on, Center without long-term current use of insulin [id number] Osteoporos Problem Com mon is, Spirit unspecifie - CHI d [facility] osteoporos 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 [id number] Low back Problem Comm on pain [facility] Prostate Prostate Problem Commo n cancer cancer Spirit [facility] [id number] Hypertrigl Problem Co mmon yceridemia [facility] [id number] Essential Problem Comm on hypertensi Spirit on [facility] [id number] History of Problem Co mmon dysphagia [facility] Disorder Prostate Problem Commo n of disorder Spirit prostate [facility] [id number] History of Problem Co mmon right-side Spirit d carotid - [facility] endarterec [facility] [id number] Personal Problem Comm on history of Spirit other - [facility] diseases [facility] digestive Medical system Center [id number] Other Problem Common chronic Spirit pain - [facility] [id number] Dysphagia, Problem Com mon unspecifie Spirit d type - [facility] [id number] Hypertensi Problem Com mon on, Spirit unspecifie - [facility]I d [facility] [id number] Acute Problem Common right-side Spirit d thoracic - [facility]I back pain [facility] [id number] Bilateral Problem Comm on impacted Spirit cerumen [facility] [id number] Rash and Problem Comm on nonspecifi Spirit c skin - CHI eruption [facility] [id number] Other Problem Common specified Spirit postproced - CHI ural [facility] Allergies, Adverse Reactions, Alerts Allergy Allergy Status Severity Reaction(s) Onset Inactive Treating Comm ents Source Name Type Date Date Clinician lisinopr lisinopr Active cough Common il il Spirit - [facility] Family History Family Member Diagnosis Comments Start Date Stop Date Source Natural brother Heart disease [facility] Natural father Heart disease [facility] Natural sister Stroke [facility] Natural sister Stroke [facility] Social History Social Habit Start Date Stop Date Quantity Comments Source History of Tobacco Common Spirit - Use [facility] Sexual orientation [facility] Alcohol intake 2017-09-03 2017-09-[address] [facility] St Hung es 00:00:00 00:00:00 non-drinker of Medical Ce nter alcohol (finding) Tobacco use and 2017-07-21 2017-07-21 Smokeless tobacco [facility] exposure 00:00:00 00:00:00 non-user Medical Center Cigarettes smoked 2017-07-21 2017-07-[address] [facility] current (pack per 00:00:00 00:00:00 Medical Center day) - Reported Cigarette 2017-07-21 2017-07-21 [facility] pack-years 00:00:00 00:00:00 [facility] Sex Assigned At [address] [facility] [address] Michelle durant 00:00:00 00:00:00 [facility] Smoking Status Start Date Stop Date Source Former Smoker 2023-07-08 00:00:00 2023-07-08 00:00:00 Common S pirit - [facility] Medications Ordered Filled Start Stop Current Ordering Indication Dosage Frequency Signature Comments Components Source Medication Medication Date Date Medication? Clinician (SIG) Name Name Losartan Losartan 2022-09 No 1{table QD Losartan Potassium Potassium 0-05 t} Potassium 50 MG 50 MG 00:00: 50 MG 00 Losartan Losartan 2022-09 No 1{table QD Losartan Potassium Potassium 0-05 t} Potassium 50 MG 50 MG 00:00: 50 MG 00 Accu-Chek Accu-Chek 0 No Accu-Chek Guide Guide 09-28 Guide w/Device w/Device 00:00: w/Device 00 Accu-Chek Accu-Chek 0 No QD Accu-Chek Guide 38 Guide 309-28 Guide 3/8 inch inch 00:00: inch 00 Accu-Chek Accu-Chek 2020-0 No Accu-Chek Guide Guide 09-28 Guide w/Device w/Device 00:00: w/Device 00 Accu-Chek Accu-Chek 2020-0 No Accu-Chek Guide - Guide - 09-28 Guide - 00:00: 00 Accu-Chek Accu-Chek 2020-0 No QD Accu-Chek Guide 38 Guide 38 09-28 Guide 3/8 inch inch 00:00: inch 00 Accu-Chek Accu-Chek 2021-0 No Accu-Chek Guide - Guide - 09-28 Guide - 00:00: 00 Accu-Chek Accu-Chek 2021-0 No Accu-Chek Guide Guide 09-28 Guide w/Device w/Device 00:00: w/Device 00 Accu-Chek Accu-Chek 2021-0 No QD Accu-Chek Guide 3/8 Guide 3/8 09-28 Guide 3/8 inch inch 00:00: inch 00 Accu-Chek Accu-Chek 1-0 No Accu-Chek Guide - Guide - 09-28 Guide - 00:00: 00 Accu-Chek Accu-Chek 1-0 No Accu-Chek Guide Guide 09-28 Guide w/Device w/Device 00:00: w/Device 00 Accu-Chek Accu-Chek 1-0 No Accu-Chek Guide - Guide - 09-28 Guide - 00:00: 00 Accu-Chek Accu-Chek 1-0 No Accu-Chek Guide Guide 09-28 Guide w/Device w/Device 00:00: w/Device 00 Accu-Chek Accu-Chek 1-0 No QD Accu-Chek Guide 3/8 Guide 3/8 09-28 Guide 3/8 inch inch 00:00: inch 00 Accu-Chek Accu-Chek 1-0 No Accu-Chek Guide Guide 09-28 Guide w/Device w/Device 00:00: w/Device 00 Accu-Chek Accu-Chek 2021-0 No Accu-Chek Guide Guide 09-28 Guide w/Device w/Device 00:00: w/Device 00 Accu-Chek Accu-Chek 2021-0 No Accu-Chek Guide Guide 09-28 Guide w/Device w/Device 00:00: w/Device 00 Accu-Chek Accu-Chek 2021-0 No Accu-Chek Guide Guide 09-28 Guide w/Device w/Device 00:00: w/Device 00 Accu-Chek Accu-Chek 2021-0 No Accu-Chek Guide Guide 09-28 Guide w/Device w/Device 00:00: w/Device 00 Accu-Chek Accu-Chek 2021-0 No QD Accu-Chek Guide 3/8 Guide 3/8 09-28 Guide 3/8 inch inch 00:00: inch 00 Accu-Chek Accu-Chek 2021-0 No Accu-Chek Guide Guide 09-28 Guide w/Device w/Device 00:00: w/Device 00 Accu-Chek Accu-Chek 2021-0 No Accu-Chek Guide - Guide - 09-28 Guide - 00:00: 00 Accu-Chek Accu-Chek 2021-0 No Accu-Chek Guide - Guide - 09-28 Guide - 00:00: 00 Accu-Chek Accu-Chek 2021-0 No Accu-Chek Guide Guide 09-28 Guide w/Device w/Device 00:00: w/Device 00 Accu-Chek Accu-Chek 2021-0 No QD Accu-Chek Guide 3/8 Guide 38 09-28 Guide 3/8 inch inch 00:00: inch 00 Accu-Chek Accu-Chek 2021-0 No Accu-Chek Guide - Guide - 09-28 Guide - 00:00: 00 Accu-Chek Accu-Chek 2021-0 No QD Accu-Chek Guide 3/8 Guide 3/8 09-28 Guide 3/8 inch inch 00:00: inch 00 Accu-Chek Accu-Chek 2021-0 No Accu-Chek Guide Guide 09-28 Guide w/Device w/Device 00:00: w/Device 00 Accu-Chek Accu-Chek 2021-0 No Accu-Chek Guide - Guide - 09-28 Guide - 00:00: 00 Accu-Chek Accu-Chek 2021-0 No QD Accu-Chek Guide 3/8 Guide 3/8 09-28 Guide 3/8 inch inch 00:00: inch 00 Blood Blood 2019-0 Yes Shalonda as Common Glucose Glucose 1-03 [place] directed Spirit Monitor Monitor 00:00: (DISPENSE - [facility] [address] [facility] [place] [facility]) Lancets Lancets Yes Shalonda as Common 1-03 [place] directed Spirit 00:00: (dispense - [facility]I [address] formulary [facility] to Medical insurance) [place] Blood Blood Yes Shalonda as Common Glucose Glucose 1-03 [place] directed Spirit Test Strip Test Strip 00:00: (DISPENSE - [facility]I [address] GLUCOSE [facility] TEST Medical STRIPS Center FORMULARY TO INSURANCE) alendronate Yes 70mg Take [address] (FOSAMAX) 1-03 by mouth [facility] 70 MG 07:17: every 7 Medical tablet 07 days Take Center in the morning with a full glass of water, on an empty stomach, and do not take anything else by mouth or lie down for the next 30 min. . gabapentin 2017-0 Yes 100mg Q.5D Take [address] (NEURONTIN) 1-03 mg by [facility] 100 MG 07:17: mouth 2 Medical capsule 07 (two) Center times daily. levothyroxi 2017- Yes 100ug Take [address] ne 1-03 mcg by [facility] (SYNTHROID, 07:17: mouth Medic al LEVOTHROID) 07 Every Center 100 MCG morning on tablet an empty stomach. lisinopril Yes 20mg QD Take [address] (PRINIVIL,Z 1-03 by mouth Luke s ESTRIL) 20 07:17: daily. Medic al MG tablet 07 Center naproxen Yes 220mg Take [address] (ALEVE,ANAP 1-03 mg by [facility] PRISCILA,MIDOL) 07:17: mouth Medica l 220 MG 07 every 12 [place] tablet (twelve) hours as needed. ketoconazol 2017-0 Yes QD Apply CHI S t e (NIZORAL) 1-03 topically Abhilash es 2 % cream 07:17: daily. Medica l 07 [place] aspirin 81 2017-0 Yes 81mg QD Take [address] MG EC -03 by mouth [facility] tablet 07:17: daily. Medical 07 Center Missing or 2018-0 Yes every [address] Non-Formula 1-03 (three) [facility]ukes ry 07:17: months Medical Medication 07 Injection Cent er [place] . alendronate 2017-0 Yes 70mg Take [address] (FOSAMAX) 1-03 by mouth [facility] 70 MG 07:17: every 7 Medical tablet 07 days Take Center in the morning with a full glass of water, on an empty stomach, and do not take anything else by mouth or lie down for the next 30 min. . gabapentin 2018-0 Yes 100mg Q.5D Take [address] (NEURONTIN) 1-03 mg by [facility] 100 MG 07:17: mouth 2 Medical capsule 07 (two) Center times daily. levothyroxi 2018-0 Yes 100ug Take [address] ne 1-03 mcg by [facility] (SYNTHROID, 07:17: mouth Medic al LEVOTHROID) 07 Every Center 100 MCG morning on tablet an empty stomach. lisinopril 2018-0 Yes 20mg QD Take [address] (PRINIVIL,Z 1-03 by mouth Luke s ESTRIL) 20 07:17: daily. Medic al MG tablet 07 [place] naproxen 2017-0 Yes 220mg Take [address] (ALEVE,ANAP 1-03 mg by [facility] PRISCILA,MIDOL) 07:17: mouth Medica l 220 MG 07 every 12 Center tablet (twelve) hours as needed. ketoconazol 2018-0 Yes QD Apply CHI S t e (NIZORAL) 1-03 topically Abhilash es 2 % cream 07:17: daily. Medica l 07 [place] aspirin 81 2018-0 Yes 81mg QD Take [address] MG EC 1-03 by mouth [facility] tablet 07:17: daily. Medical 07 Center Missing or 2018-0 Yes every [address] Non-Formula 1-03 (three) [facility] ry 07:17: months Medical Medication 07 [facility] minocycline 2018-0 Yes 100mg Q.5D Take [address] (DYNACIN) 1-03 mg by [facility] 100 MG 07:15: mouth 2 Medical tablet 21 (two) Center times daily. minocycline 2018-0 Yes 100mg Q.5D Take [address] (DYNACIN) 1-03 mg by [facility] 100 MG 07:15: mouth 2 Medical tablet 21 (two) Center times daily. Bicalutamid Bicalutamid Yes Shalonda 1 tablet Common e e Mill[place] [facility] Gabapentin Gabapentin Yes Shalonda [address] [facility] Levothyroxi Levothyroxi Yes Shalonda 1 tablet Common ne Sodium ne Sodium Millender on an Spirit empty - CHI stomach in [facility] Fish Oil Fish Oil Yes Shalonda 1 capsule C ommon Millender (otc) Spirit - [facility] Lisinopril Lisinopril Yes Shalonda 1 tablet Common Millender Spirit [facility] Multiple Multiple Yes Shalonda 1 tablet Co mmon Vitamin Vitamin Millender Spir it - [facility] Ketoconazol Ketoconazol Yes Shalonda 1 Common e e Millender applicatio Spir it n to - CHI affected [facility] Jublia Jublia Yes Shalonda 1 Common Millender applicatio Spir it n to - CHI affected [facility] Gabapentin Gabapentin Yes Shalonda 1 capsule Common Millender Spirit [facility] Metformin Metformin Yes Shalonda 1 tablet Common HCl HCl Millender with a Spirit meal - [facility] Levothyroxi Levothyroxi No Levothyrox ne Sodium ne Sodium ine Sodium 100 MCG 100 MCG 100 MCG metFORMIN metFORMIN No metFORMIN HCl 500 MG HCl 500 MG HCl 500 MG Bicalutamid Bicalutamid No 1{table QD Bicalutami e 50 MG e 50 MG t} de 50 MG Lisinopril Lisinopril No Lisinopril 10 MG 10 MG 10 MG Levothyroxi Levothyroxi No Levothyrox ne Sodium ne Sodium ine Sodium 100 MCG 100 MCG 100 MCG Gabapentin Gabapentin No 1{capsu BID Gabapentin 100 MG 100 MG le_as_n 100 MG eeded} Bicalutamid Bicalutamid No 1{table QD Bicalutami e 50 MG e 50 MG t} de 50 MG metFORMIN metFORMIN No 1{table BID metFORMIN HCl 500 MG HCl 500 MG t_with_ HCl 500 MG a_meal} Lisinopril Lisinopril No Lisinopril 10 MG 10 MG 10 MG Multiple Multiple No 1{table QD Multiple Vitamin - Vitamin - t} Vitamin - Gabapentin Gabapentin No 1{capsu BID Gabapentin 100 MG 100 MG le_as_n 100 MG eeded} Multiple Multiple No 1{table QD Multiple Vitamin - Vitamin - t} Vitamin - Tamsulosin Tamsulosin No 1{capsu QD Tamsulosin HCl 0.4 MG HCl 0.4 MG le} HCl 0.4 MG Alendronate Alendronate No Alendronat Sodium 70 Sodium 70 e Sodium MG MG 70 MG metFORMIN metFORMIN No metFORMIN HCl 500 MG HCl 500 MG HCl 500 MG Bicalutamid Bicalutamid No 1{table QD Bicalutami e 50 MG e 50 MG t} de 50 MG Lisinopril Lisinopril No QD Lisinopril 10 MG 10 MG 10 MG Levothyroxi Levothyroxi No Levothyrox ne Sodium ne Sodium ine Sodium 100 MCG 100 MCG 100 MCG Gabapentin Gabapentin No 1{capsu BID Gabapentin 100 MG 100 MG le_as_n 100 MG eeded} Multiple Multiple No 1{table QD Multiple Vitamin - Vitamin - t} Vitamin - Tamsulosin Tamsulosin No 1{capsu QD Tamsulosin HCl 0.4 MG HCl 0.4 MG le} HCl 0.4 MG metFORMIN metFORMIN No metFORMIN HCl 500 MG HCl 500 MG HCl 500 MG Levothyroxi Levothyroxi No Levothyrox ne Sodium ne Sodium ine Sodium 100 MCG 100 MCG 100 MCG Bicalutamid Bicalutamid No 1{table QD Bicalutami e 50 MG e 50 MG t} de 50 MG Lisinopril Lisinopril No QD Lisinopril 10 MG 10 MG 10 MG Alendronate Alendronate No Alendronat Sodium 70 Sodium 70 e Sodium MG MG 70 MG Multiple Multiple No 1{table QD Multiple Vitamin - Vitamin - t} Vitamin - Levothyroxi Levothyroxi No Levothyrox ne Sodium ne Sodium ine Sodium 100 MCG 100 MCG 100 MCG Lisinopril Lisinopril No QD Lisinopril 10 MG 10 MG 10 MG metFORMIN metFORMIN No BID metFORMIN HCl 500 MG HCl 500 MG HCl 500 MG Gabapentin Gabapentin No Gabapentin 100 MG 100 MG 100 MG Tamsulosin Tamsulosin No 1{capsu QD Tamsulosin HCl 0.4 MG HCl 0.4 MG le} HCl 0.4 MG Bicalutamid Bicalutamid No 1{table QD Bicalutami e 50 MG e 50 MG t} de 50 MG Accu-Chek Accu-Chek No Accu-Chek Guide - Guide - Guide - Alendronate Alendronate No Alendronat Sodium 70 Sodium 70 e Sodium MG MG 70 MG Gabapentin Gabapentin No Gabapentin 100 MG 100 MG 100 MG Levothyroxi Levothyroxi No QD Levothyrox ne Sodium ne Sodium ine Sodium 100 MCG 100 MCG 100 MCG metFORMIN metFORMIN No metFORMIN HCl 500 MG HCl 500 MG HCl 500 MG Tamsulosin Tamsulosin No 1{capsu QD Tamsulosin HCl 0.4 MG HCl 0.4 MG le} HCl 0.4 MG Accu-Chek Accu-Chek No Accu-Chek FastClix FastClix FastClix Lancets - Lancets - Lancets - Multiple Multiple No 1{table QD Multiple Vitamin - Vitamin - t} Vitamin - Lisinopril Lisinopril No Lisinopril 10 MG 10 MG 10 MG Accu-Chek Accu-Chek No Accu-Chek Guide - Guide - Guide - Alendronate Alendronate No Alendronat Sodium 70 Sodium 70 e Sodium MG MG 70 MG Gabapentin Gabapentin No Gabapentin 100 MG 100 MG 100 MG Levothyroxi Levothyroxi No QD Levothyrox ne Sodium ne Sodium ine Sodium 100 MCG 100 MCG 100 MCG metFORMIN metFORMIN No metFORMIN HCl 500 MG HCl 500 MG HCl 500 MG Tamsulosin Tamsulosin No 1{capsu QD Tamsulosin HCl 0.4 MG HCl 0.4 MG le} HCl 0.4 MG Accu-Chek Accu-Chek No Accu-Chek FastClix FastClix FastClix Lancets - Lancets - Lancets - Multiple Multiple No 1{table QD Multiple Vitamin - Vitamin - t} Vitamin - Lisinopril Lisinopril No Lisinopril 10 MG 10 MG 10 MG Tamsulosin Tamsulosin No 1{capsu QD Tamsulosin HCl 0.4 MG HCl 0.4 MG le} HCl 0.4 MG Accu-Chek Accu-Chek No Accu-Chek Guide - Guide - Guide - Accu-Chek Accu-Chek No Accu-Chek FastClix FastClix FastClix Lancets - Lancets - Lancets - Multiple Multiple No 1{table QD Multiple Vitamin - Vitamin - t} Vitamin - Alendronate Alendronate No Alendronat Sodium 70 Sodium 70 e Sodium MG MG 70 MG Gabapentin Gabapentin No Gabapentin 100 MG 100 MG 100 MG metFORMIN metFORMIN No metFORMIN HCl 500 MG HCl 500 MG HCl 500 MG Levothyroxi Levothyroxi No QD Levothyrox ne Sodium ne Sodium ine Sodium 100 MCG 100 MCG 100 MCG Tamsulosin Tamsulosin No 1{capsu QD Tamsulosin HCl 0.4 MG HCl 0.4 MG le} HCl 0.4 MG Accu-Chek Accu-Chek No Accu-Chek Guide - Guide - Guide - Accu-Chek Accu-Chek No Accu-Chek FastClix FastClix FastClix Lancets - Lancets - Lancets - Multiple Multiple No 1{table QD Multiple Vitamin - Vitamin - t} Vitamin - Alendronate Alendronate No Alendronat Sodium 70 Sodium 70 e Sodium MG MG 70 MG Gabapentin Gabapentin No Gabapentin 100 MG 100 MG 100 MG metFORMIN metFORMIN No metFORMIN HCl 500 MG HCl 500 MG HCl 500 MG Levothyroxi Levothyroxi No QD Levothyrox ne Sodium ne Sodium ine Sodium 100 MCG 100 MCG 100 MCG Gabapentin Gabapentin No Gabapentin 100 MG 100 MG 100 MG Losartan Losartan No Losartan Potassium Potassium Potassium 50 MG 50 MG 50 MG Tamsulosin Tamsulosin No 1{capsu QD Tamsulosin HCl 0.4 MG HCl 0.4 MG le} HCl 0.4 MG Accu-Chek Accu-Chek No Accu-Chek Guide - Guide - Guide - Accu-Chek Accu-Chek No Accu-Chek FastClix FastClix FastClix Lancets - Lancets - Lancets - metFORMIN metFORMIN No metFORMIN HCl 500 MG HCl 500 MG HCl 500 MG Levothyroxi Levothyroxi No QD Levothyrox ne Sodium ne Sodium ine Sodium 100 MCG 100 MCG 100 MCG Multiple Multiple No 1{table QD Multiple Vitamin - Vitamin - t} Vitamin - Losartan Losartan No 1{table BID Losartan Potassium Potassium t} Potassium 50 MG 50 MG 50 MG Alendronate Alendronate No Alendronat Sodium 70 Sodium 70 e Sodium MG MG 70 MG Bicalutamid Bicalutamid No 1{table QD Bicalutami e 50 MG e 50 MG t} de 50 MG Multiple Multiple No 1{table QD Multiple Vitamin - Vitamin - t} Vitamin - Levothyroxi Levothyroxi No QD Levothyrox ne Sodium ne Sodium ine Sodium 100 MCG 100 MCG 100 MCG Gabapentin Gabapentin No 1{capsu Gabapentin 100 MG 100 MG le} 100 MG Lisinopril Lisinopril No 1{table QD Lisinopril 10 MG 10 MG t} 10 MG metFORMIN metFORMIN No metFORMIN HCl 500 MG HCl 500 MG HCl 500 MG Levothyroxi Levothyroxi No Levothyrox ne Sodium ne Sodium ine Sodium 100 MCG 100 MCG 100 MCG Multiple Multiple No 1{table QD Multiple Vitamin - Vitamin - t} Vitamin - Gabapentin Gabapentin No 1{capsu BID Gabapentin 100 MG 100 MG le_as_n 100 MG eeded} Bicalutamid Bicalutamid No 1{table QD Bicalutami e 50 MG e 50 MG t} de 50 MG Lisinopril Lisinopril No Lisinopril 10 MG 10 MG 10 MG metFORMIN metFORMIN No metFORMIN HCl 500 MG HCl 500 MG HCl 500 MG Gabapentin Gabapentin No 1{capsu BID Gabapentin 100 MG 100 MG le_as_n 100 MG eeded} Multiple Multiple No 1{table QD Multiple Vitamin - Vitamin - t} Vitamin - Levothyroxi Levothyroxi No Levothyrox ne Sodium ne Sodium ine Sodium 100 MCG 100 MCG 100 MCG metFORMIN metFORMIN No metFORMIN HCl 500 MG HCl 500 MG HCl 500 MG Bicalutamid Bicalutamid No 1{table QD Bicalutami e 50 MG e 50 MG t} de 50 MG Lisinopril Lisinopril No Lisinopril 10 MG 10 MG 10 MG Gabapentin Gabapentin No 1{capsu BID Gabapentin 100 MG 100 MG le_as_n 100 MG eeded} Multiple Multiple No 1{table QD Multiple Vitamin - Vitamin - t} Vitamin - Alendronate Alendronate Alendronat Sodium 70 Sodium 70 02- e Sodium MG MG 00:00 70 MG :00 Alendronate Alendronate 2020- No 1{table Alendronat Sodium 70 Sodium 70 10-22 t} e Sodium MG MG 00:00 70 MG :00 Alendronate Alendronate 2020- No Shalonda 1 tablet Common Sodium Sodium 05-28 [place] Spiri t 00:00 - CHI :00 [facility] Vital Signs Vital Name Observation Time Observation Value Comments Source height 2023-01-15 13:20:00 68 [in_i] Common S pirit [facility] weight 2023-01-15 13:20:00 185.0 [lb_av] Common [facility] temperature 2023-01-15 13:20:00 98.2 [degF] Common S pirit [facility] bmi 2023-01-15 13:20:00 28.13 kg/m2 [facility] S pirit [facility] oximetry 2023-01-15 13:20:00 91 % Common S pirit - [facility] respiratory rate 2023-01-15 13:20:00 16 /min Comm on [facility] blood pressure 2023-01-15 13:20:00 137 mm[Hg] Common [facility] - systolic [facility] blood pressure 2023-01-15 13:20:00 79 mm[Hg] Common [facility] - diastolic [facility] height 2022-10-21 14:00:00 68 [in_i] Common S psychiatricit [facility] weight 2022-10-21 14:00:00 189.8 [lb_av] [facility] temperature 2022-10-21 14:00:00 98.6 [degF] Common [facility] bmi 2022-10-21 14:00:00 28.86 kg/m2 [facility] oximetry 2022-10-21 14:00:00 94 % Common S [facility] respiratory rate 2022-10-21 14:00:00 17 /min Comm on [facility] blood pressure 2022-10-21 14:00:00 138 mm[Hg] Common [facility] - systolic [facility] blood pressure 2022-10-21 14:00:00 70 mm[Hg] Common [facility] - diastolic [facility] height 2022-10-21 13:00:00 68 [in_i] Common [facility] weight 2022-10-21 13:00:00 189.8 [lb_av] [facility] temperature 2022-10-21 13:00:00 98.6 [degF] Common S psychiatricit [facility] bmi 2022-10-21 13:00:00 28.86 kg/m2 Common S [facility] oximetry 2022-10-21 13:00:00 94 % Common [facility] respiratory rate 2022-10-21 13:00:00 17 /min Comm on [facility] blood pressure 2022-10-21 13:00:00 138 mm[Hg] Common Spirit - systolic [facility] blood pressure 2022-10-21 13:00:00 70 mm[Hg] Common Spirit - diastolic [facility] height 2022-07-22 14:00:00 68 [in_i] Common S [facility] weight 2022-07-22 14:00:00 194 [lb_av] Common S pirit [facility] temperature 2022-07-22 14:00:00 97.2 [degF] Common S pirit [facility] bmi 2022-07-22 14:00:00 29.49 kg/m2 [facility] 14:00:00 95 % Common S [facility] respiratory rate 2022-07-22 14:00:00 16 /min Comm on [facility] blood pressure 2022-07-22 14:00:00 130 mm[Hg] Common Spirit - systolic [facility] blood pressure 2022-07-22 14:00:00 74 mm[Hg] Common [facility] - diastolic [facility] height 2022-04-18 13:40:00 68 [in_i] Common S [facility] weight 2022-04-18 13:40:00 188.6 [lb_av] [facility] temperature 2022-04-18 13:40:00 97.3 [degF] Common S pirit [facility] bmi 2022-04-18 13:40:00 28.67 kg/m2 [facility] 2022-04-18 13:40:00 96 % Common S [facility] respiratory rate 2022-04-18 13:40:00 16 /min Comm on [facility] blood pressure 2022-04-18 13:40:00 134 mm[Hg] Common [facility] - systolic [facility] blood pressure 2022-04-18 13:40:00 80 mm[Hg] Common Spirit - diastolic [facility] height 2021-10-23 14:20:00 69.25 [in_i] Common S pirit - [facility] weight 2021-10-23 14:20:00 190 [lb_av] Common S psychiatricit [facility] temperature 2021-10-23 14:20:00 97.7 [degF] [facility] 2021-10-23 14:20:00 27.85 kg/m2 Common S pirit - [facility] oximetry 2021-10-23 14:20:00 96 % Common S [facility] blood pressure 2021-10-23 14:20:00 126 mm[Hg] [facility] blood pressure 2021-10-23 14:20:00 86 mm[Hg] [facility] height 2021-10-23 13:40:00 69.25 [in_i] [facility] weight 2021-10-23 13:40:00 190 [lb_av] Common [facility] temperature 2021-10-23 13:40:00 97.7 [degF] Common [facility] bmi 2021-10-23 13:40:00 27.85 kg/m2 Common [facility] oximetry 2021-10-23 13:40:00 96 % Common [facility] blood pressure 2021-10-23 13:40:00 126 mm[Hg] [facility] blood pressure 2021-10-23 13:40:00 86 mm[Hg] [facility] Procedures This patient has no known procedures. Encounters Start End Encounter Admission Attending Care Care Encounter Source Date/Time Date/Time Type Type Clinicians Facility Department ID 2022-07-19 Outpatient BRENDON Ken [facility] [id number] Common 09:09:01 [facility] [address] [place] [address] 2021-10-[address] Jesus ManuelQUE [facility] [id number] Common 07:47:00 [facility] 2021-09-26 Outpatient STLMLC STLMLC [id number] Common 12:08:[id number] [facility] 2021-09-26 Outpatient Millender, STLMLC STLMLC [id number] 11:41:[id number] [facility] 2021-09-26 Outpatient Millender, STLMLC STLMLC [id number] Common 11:12:[id number] [facility] 2023-01-15 2023-01-15 OFFICE STLMLC STLMLC [id number] Co mmon 00:00:00 00:00:00 VISIT [facility] PT - CHI LEVEL [address] [place] [address] 2022-10-21 2022-10-21 OFFICE STLMLC STLMLC [id number] Co mmon 00:00:00 00:00:00 VISIT [facility] PT - CHI LEVEL 3 [facility] 2022-10-21 2022-10-21 SUB ANNUAL STLMLC STLMLC [id number] Common 00:00:00 00:00:00 MCR [facility] - [facility] VISIT [facility] 2022-07-22 2022-07-22 OFFICE STLMLC STLMLC [id number] Co mmon 00:00:00 00:00:00 VISIT EST Spir it PT LEVEL 3 - [facility] 2022-06-25 2022-06-25 (TEL) STLMLC STLMLC [id number] Co mmon 00:00:00 00:00:00 [facility] 2022-04-18 2022-04-18 OFFICE STLMLC STLMLC [id number] Co mmon 00:00:00 00:00:00 VISIT EST Spir it PT LEVEL 3 - [facility] 2022-03-26 2022-03-26 (TEL) STLMLC STLMLC [id number] Co mmon 00:00:00 00:00:00 [facility] 2022-02-26 2022-02-26 (TEL) STLMLC STLMLC [id number] Co mmon 00:00:00 00:00:00 [facility] 2022-01-30 2022-01-30 (TEL) STLMLC STLMLC [id number] Co mmon 00:00:00 00:00:00 [facility] 2021-10-23 2021-10-23 OFFICE STLMLC STLMLC [id number] Co mmon 00:00:00 00:00:00 VISIT [facility] LEVEL 4 [facility] 2021-10-23 2021-10-23 SUB ANNUAL STLMLC STLMLC [id number] Common 00:00:00 00:00:00 MCR [facility] VISIT [facility] 2021-08-20 2021-08-20 (TEL) STLMLC STLMLC [id number] Co mmon 00:00:00 00:00:00 [facility] 2021-05-17 2021-05-17 (TEL) STLMLC STLMLC [id number] Co mmon 00:00:00 00:00:00 [facility] 2021-04-09 2021-04-09 Outpatient STLMLC STLMLC [id number] Common 00:00:00 00:00:00 [facility] 2021-02-12 2021-02-12 Outpatient STLMLC STLMLC [id number] Common 00:00:00 00:00:00 [facility] 2021-02-01 2021-02-01 Outpatient STLMLC STLMLC [id number] Common 00:00:00 00:00:00 [facility] 2020-11-02 2020-11-02 Outpatient STLMLC STLMLC [id number] Common 00:00:00 00:00:00 [facility] 2020-10-21 2020-10-21 Outpatient STLMLC STLMLC [id number] Common 00:00:00 00:00:00 [facility] 2020-10-20 2020-10-20 Outpatient STLMLC STLMLC [id number] Common 00:00:00 00:00:00 [facility] 2020-09-29 2020-09-29 Outpatient STLMLC STLMLC [id number] Common 00:00:00 00:00:00 [facility] 2020-09-28 2020-09-28 Outpatient STLMLC STLMLC [id number] Common 00:00:00 00:00:00 [facility] 2020-09-26 2020-09-26 Outpatient STLMLC STLMLC [id number] Common 00:00:00 00:00:00 [facility] 2020-09-25 2020-09-25 Outpatient STLMLC STLMLC [id number] Common 00:00:00 00:00:00 [facility] 2020-05-01 2020-05-01 [id number] Common 08:40:00 08:40:[address] [facility] [address] [facility] 2020-04-06 2020-04-06 Outpatient [facility] [id number] Common 11:36:00 11:36:[address] [facility] 2019-11-08 2019-11-08 Outpatient [facility] [id number] Common 08:45:00 08:45:[address] [facility] [address] [facility] 2019-09-10 2019-09-10 Out[facility] [id number] Common 16:26:00 16:26:[address] [facility] [address] [facility] 2019-08-05 2019-08-05 Outpatient [facility] [id number] Common 16:20:00 16:20:[address] [facility] [address] [facility] 2019-07-06 2019-07-06 Outpatient zzzAmy zzzAmy [id number] Common 15:06:00 15:06:00 Ezekiel Falcon Sp ronnie DO [facility] 2019-06-06 2019-06-06 Out[facility] [id number] Common 21:37:00 21:37:[address] [facility] [address] [facility] 2019-06-03 2019-06-03 Out[facility] [id number] Common 09:40:00 09:40:[address] [facility] Results Test Description Test Time Test Comments Results Result Comments Source HEMOGLOBIN A1C 2022-07-22 00:00:00 Test Item Value Reference Range Interpretation Comme nts A1C (test code = 4548-4) 7.5 HEMOGLOBIN [id number] 00:00:00 Test Item Value Reference Range Interpretation Comments A1C (test code = 4548-4) 7.0 TISSUE [id number] 11:47:00Surgical Pathology Report Case: [id number] Authorizing Provider: Grisel Costa MD Collected: 07/22/201713 Ordering Location: [facility] Received: 07/22/2017 0955 [facility] Pathologist: Fidel Lujan MD Specimen: Plaque, RIGHT CAROTID PLAQUE ARTERY, RIGHT CAROTID, ENDARTERECTOMY:CALCIFIC ATHEROSCLEROTIC PLAQUE Signing Pathologist Direct Phone Line: [phone] signed by Fidel Lujan MD on 07/25/2017 at 11:47 [id number]; [id number] carotid plaqueThe specimenis received in saline labeled with the patient's name labeled "right carotid plaque" and consists ofa calcified tubular shaped segment of tissue measuring 2 cm in length x 0.8 cm in diameter. Qi Specialist sections are submitted A1 for decalcification. CG/pl Carotid stenosisPerformedBASIC METABOLIC [id number] 10:50:00 Test Item Value Reference Range Interpretation Comments SODIUM (BEAKER) 138 meq/L 136-145 (test code = 381) POTASSIUM (BEAKER) 4.3 meq/L 3.5-5.1 (test code = 379) CHLORIDE (BEAKER) 109 meq/L 98-107 H (test code = 382) CO2 (BEAKER) (test 22 meq/L 22-29 code = 355) BLOOD UREA NITROGEN 11 mg/dL 7-21 (BEAKER) (test code = 354) CREATININE (BEAKER) 0.75 mg/dL 0.57-1.25 (test code = 358) GLUCOSE RANDOM 121 mg/dL 70-105 H (BEAKER) (test code = 652) CALCIUM (BEAKER) 7.9 mg/dL 8.4-10.2 L (test code = 697) EGFR (BEAKER) (test 103 mL/min/1.73 ESTIM ATED GFR IS code = 1092) sq m NOT ACCURATE CREATININE CLEARANCE IN PREDICTING GLOMERULAR FILTRATION RATE . ESTIMATED GFR I S NOT APPLICABLE FOR DIALYSIS PATIEN TS. [id number] 05:55:00 Test Item Value Reference Range Interpretation Comments PROTIME (BEAKER) (test code = 13.8 seconds 11.7-14.7 759) INR (BEAKER) (test code = 370) 1.1 <=5.9 PARTIAL THROMBOPLASTIN TIME 39.0 seconds 22.5-36.0 H (BEAKER) (test code = 760) RECOMMENDED COUMADIN/WARFARIN INR THERAPY RANGESSTANDARD DOSE: 2.0 - 3.0 Includes: PROPHYLAXIS for venous thrombosis, systemic embolization; TREATMENT for venous thrombosis and/or pulmonary embolus.HIGH RISK: Target INR is 2.5-3.5 for patients with mechanical heart valves.CBC (HEMOGRAM ONLY)2017-07-23 05:47:00 Test Item Value Reference Range Interpretation Comments WHITE BLOOD CELL COUNT (BEAKER) 7.3 K/ L 3.5-10.5 (test code = 775) RED BLOOD CELL COUNT (BEAKER) 3.70 M/ L 4.63-6.08 L (test code = 761) HEMOGLOBIN (BEAKER) (test code = 11.8 GM/DL 13.7-17.5 L 410) HEMATOCRIT (BEAKER) (test code = 34.9 % 40.1-51.0 L 411) MEAN CORPUSCULAR VOLUME (BEAKER) 94.3 fL 79.0-92.2 H (test code = 753) MEAN CORPUSCULAR HEMOGLOBIN 31.9 pg 25.7-32.2 (BEAKER) (test code = 751) MEAN CORPUSCULAR HEMOGLOBIN CONC 33.8 GM/DL 32.3-36.5 (BEAKER) (test code = 752) RED CELL DISTRIBUTION WIDTH 12.7 % 11.6-14.4 (BEAKER) (test code = 412) PLATELET COUNT (BEAKER) (test 166 K/CU MM 150-450 code = 756) MEAN PLATELET VOLUME (BEAKER) 10.2 fL 9.4-12.4 (test code = 754) NUCLEATED RED BLOOD CELLS 0 /100 WBC 0-0 (BEAKER) (test code = 413) BASIC METABOLIC [id number] 10:44:00 Test Item Value Reference Range Interpretation Comments SODIUM (BEAKER) 141 meq/L 136-145 (test code = 381) POTASSIUM (BEAKER) 4.6 meq/L 3.5-5.1 (test code = 379) CHLORIDE (BEAKER) 111 meq/L 98-107 H (test code = 382) CO2 (BEAKER) (test 21 meq/L 22-29 L code = 355) BLOOD UREA NITROGEN 12 mg/dL 7-21 (BEAKER) (test code = 354) CREATININE (BEAKER) 0.76 mg/dL 0.57-1.25 (test code = 358) GLUCOSE RANDOM 128 mg/dL 70-105 H (BEAKER) (test code = 652) CALCIUM (BEAKER) 8.0 mg/dL 8.4-10.2 L (test code = 697) EGFR (BEAKER) (test 101 mL/min/1.73 ESTIM ATED GFR IS code = 1092) sq m NOT ACCURATE CREATININE CLEARANCE IN PREDICTING GLOMERULAR FILTRATION RATE . ESTIMATED GFR I S NOT APPLICABLE FOR DIALYSIS PATIEN TS. HEMOGLOBIN [id number] 09:45:00 Test Item Value Reference Range Interpretation Comments HEMOGLOBIN A1C (BEAKER) (test code = 6.1 % 4.3-6.1 368) CBC W/PLT COUNT & AUTO [id number] 09:23:00 Test Item Value Reference Range Interpretation Comments WHITE BLOOD CELL COUNT (BEAKER) 7.9 K/ L 3.5-10.5 (test code = 775) RED BLOOD CELL COUNT (BEAKER) 4.12 M/ L 4.63-6.08 L (test code = 761) HEMOGLOBIN (BEAKER) (test code = 12.9 GM/DL 13.7-17.5 L 410) HEMATOCRIT (BEAKER) (test code = 37.8 % 40.1-51.0 L 411) MEAN CORPUSCULAR VOLUME (BEAKER) 91.7 fL 79.0-92.2 (test code = 753) MEAN CORPUSCULAR HEMOGLOBIN 31.3 pg 25.7-32.2 (BEAKER) (test code = 751) MEAN CORPUSCULAR HEMOGLOBIN CONC 34.1 GM/DL 32.3-36.5 (BEAKER) (test code = 752) RED CELL DISTRIBUTION WIDTH 12.4 % 11.6-14.4 (BEAKER) (test code = 412) PLATELET COUNT (BEAKER) (test 188 K/CU MM 150-450 code = 756) MEAN PLATELET VOLUME (BEAKER) 10.2 fL 9.4-12.4 (test code = 754) NUCLEATED RED BLOOD CELLS 0 /100 WBC 0-0 (BEAKER) (test code = 413) NEUTROPHILS RELATIVE PERCENT 74 % (BEAKER) (test code = 429) LYMPHOCYTES RELATIVE PERCENT 16 % (BEAKER) (test code = 430) MONOCYTES RELATIVE PERCENT 7 % (BEAKER) (test code = 431) EOSINOPHILS RELATIVE PERCENT 2 % (BEAKER) (test code = 432) BASOPHILS RELATIVE PERCENT 1 % (BEAKER) (test code = 437) NEUTROPHILS ABSOLUTE COUNT 5.81 K/ L 1.78-5.38 H (BEAKER) (test code = 670) LYMPHOCYTES ABSOLUTE COUNT 1.27 K/ L 1.32-3.57 L (BEAKER) (test code = 414) MONOCYTES ABSOLUTE COUNT (BEAKER) 0.56 K/ L 0.30-0.82 (test code = 415) EOSINOPHILS ABSOLUTE COUNT 0.14 K/ L 0.04-0.54 (BEAKER) (test code = 416) BASOPHILS ABSOLUTE COUNT (BEAKER) 0.04 K/ L 0.01-0.08 (test code = 417) IMMATURE GRANULOCYTES-RELATIVE 1 % 0-1 PERCENT (BEAKER) (test code = 2801) BLOOD GAS, [id number] 09:10:00 Test Item Value Reference Range Interpretation Comments PH ARTERIAL (BEAKER) (test code = 7.37 7.35-7.45 383) PCO2 ARTERIAL (BEAKER) (test code 39 mmHg 35-45 = 384) PO2 ARTERIAL (BEAKER) (test code 209 mmHg 80-90 H = 385) O2 SATURATION ARTERIAL (BEAKER) 99.4 % 96.0-97.0 H (test code = 386) HCO3 ARTERIAL (BEAKER) (test code 22 mmol/L 21-29 = 388) BASE EXCESS ARTERIAL (BEAKER) -3.2 mmol/L -2.0-3.0 L (test code = 387) PATIENT TEMPERATURE (BEAKER) 36.0 C (test code = 1818) FIO2 (BEAKER) (test code = 1819) 40.0 % BASIC METABOLIC [id number] 10:37:00 Test Item Value Reference Range Interpretation Comments SODIUM (BEAKER) 141 meq/L 136-145 (test code = 381) POTASSIUM (BEAKER) 4.4 meq/L 3.5-5.1 (test code = 379) CHLORIDE (BEAKER) 104 meq/L 98-107 (test code = 382) CO2 (BEAKER) (test 28 meq/L 22-29 code = 355) BLOOD UREA NITROGEN 12 mg/dL 7-21 (BEAKER) (test code = 354) CREATININE (BEAKER) 0.79 mg/dL 0.57-1.25 (test code = 358) GLUCOSE RANDOM 125 mg/dL 70-105 H (BEAKER) (test code = 652) CALCIUM (BEAKER) 9.3 mg/dL 8.4-10.2 (test code = 697) EGFR (BEAKER) (test 97 mL/min/1.73 ESTIMA ANGELA GFR IS code = 1092) sq m NOT ACCURATE CREATININE CLEARANCE IN PREDICTING GLOMERULAR FILTRATION RATE . ESTIMATED GFR I S NOT APPLICABLE FOR DIALYSIS PATIEN TS. RAD, CHEST, 2 [id number] 10:21:00Reason for Exam:->Pre-OpFINAL REPORT Chest 2 views 07/21/2017 10:21 AM CLINICAL HISTORY: Pre-Op COMPARISON: None available FINDINGS: The lungs are clear. Cardiomediastinal contours are within normal limits. The central pulmonary vasculature is not engorged. The visualized skeleton is intact. IMPRESSION: No acute radiographic abnormalities. Signed: Jed Vazquez Verified Date/Time: 07/21/2017 1 0:21:46 Reading Location: [facility] Radiology Reading Room PROTHROMBIN TIME/INR 2017-07-21 10:11:00 Test Item Value Reference Range Interpretation Comments PROTIME (BEAKER) (test code = 13.8 seconds 11.7-14.7 759) INR (BEAKER) (test code = 370) 1.1 <=5.9 RECOMMENDED COUMADIN/WARFARIN INR THERAPY RANGESSTANDARD DOSE: 2.0 - 3.0 Includes: PROPHYLAXIS for venous thrombosis, systemic embolization; TREATMENT for venous thrombosis and/or pulmonary embolus.HIGH RISK: Target INR is 2.5-3.5 for patients with mechanical heart valves.CBC W/PLT COUNT & AUTO [id number] 10:05:00 Test Item Value Reference Range Interpretation Comments WHITE BLOOD CELL COUNT (BEAKER) 6.3 K/ L 3.5-10.5 (test code = 775) RED BLOOD CELL COUNT (BEAKER) 4.69 M/ L 4.63-6.08 (test code = 761) HEMOGLOBIN (BEAKER) (test code = 14.6 GM/DL 13.7-17.5 410) HEMATOCRIT (BEAKER) (test code = 43.2 % 40.1-51.0 411) MEAN CORPUSCULAR VOLUME (BEAKER) 92.1 fL 79.0-92.2 (test code = 753) MEAN CORPUSCULAR HEMOGLOBIN 31.1 pg 25.7-32.2 (BEAKER) (test code = 751) MEAN CORPUSCULAR HEMOGLOBIN CONC 33.8 GM/DL 32.3-36.5 (BEAKER) (test code = 752) RED CELL DISTRIBUTION WIDTH 12.6 % 11.6-14.4 (BEAKER) (test code = 412) PLATELET COUNT (BEAKER) (test 224 K/CU MM 150-450 code = 756) MEAN PLATELET VOLUME (BEAKER) 10.3 fL 9.4-12.4 (test code = 754) NUCLEATED RED BLOOD CELLS 0 /100 WBC 0-0 (BEAKER) (test code = 413) NEUTROPHILS RELATIVE PERCENT 75 % (BEAKER) (test code = 429) LYMPHOCYTES RELATIVE PERCENT 16 % (BEAKER) (test code = 430) MONOCYTES RELATIVE PERCENT 7 % (BEAKER) (test code = 431) EOSINOPHILS RELATIVE PERCENT 1 % (BEAKER) (test code = 432) BASOPHILS RELATIVE PERCENT 1 % (BEAKER) (test code = 437) NEUTROPHILS ABSOLUTE COUNT 4.74 K/ L 1.78-5.38 (BEAKER) (test code = 670) LYMPHOCYTES ABSOLUTE COUNT 1.00 K/ L 1.32-3.57 L (BEAKER) (test code = 414) MONOCYTES ABSOLUTE COUNT (BEAKER) 0.46 K/ L 0.30-0.82 (test code = 415) EOSINOPHILS ABSOLUTE COUNT 0.05 K/ L 0.04-0.54 (BEAKER) (test code = 416) BASOPHILS ABSOLUTE COUNT (BEAKER) 0.05 K/ L 0.01-0.08 (test code = 417) IMMATURE GRANULOCYTES-RELATIVE 0 % 0-1 PERCENT (BEAKER) (test code = 2801)
[2023-08-04 07:35] LABS: Absolute Lymphocytes (CBC) 1.7 K/uL (0.7-4.9); Hematocrit 45.3 % (39.6-49.0); Lymphocytes % 17.9 % (15.3-44.8); MCV 93.4 fL (80-100); Platelets 210 thou/uL (152-406); RBC Red Blood Cell Count 4.84 M/uL (4.33-5.43)
[2023-08-04 07:40] LABS: Protime INR 0.93
[2023-08-04 07:53] LABS: ALT/SGPT 13 U/L (16-61); AST/SGOT 20 U/L (15-37); Albumin 3.7 g/dL (3.4-5.0); Alkaline Phosphatase 71 U/L (45-117); BUN Blood Urea Nitrogen 16 mg/dL (7-18); Bicarbonate 30 mEq/L (21-32); Bilirubin Total 0.2 mg/dL (0.2-1.0); Glomerular Filtration Rate 70 ml/min (=/>90); Glucose Level 164 mg/dL (74-106); NT PRO-BNP 101 pg/mL (<450); Protein, Total 7.4 g/dL (6.4-8.2); Sodium Level 141 mEq/L (136-145); Troponin High Sensitivity 12.9 pg/mL (<58.9)
[2023-08-04 07:54] LABS: Bilirubin Direct < 0.1 mg/dL (0-0.2); Bilirubin Indirect, Calculated ND mg/dL (0.2-0.8)
--- NOTE | 2023-08-04 08:24 | RAD REPORT ---
EXAM DESCRIPTION: RAD - Chest Single View - 08/04/2023 7:52 am CLINICAL HISTORY: DYSPNEA COMPARISON: Chest Pa And Lat (2 Views) dated 07/11/2017 FINDINGS: Lines: None. Lungs: No evidence of edema or pneumonia. Pleural: No significant pleural effusions or pneumothorax. Cardiac: The heart size is within normal limits. Mediastinum: Within normal limits. Bones: No acute fractures. Other: None IMPRESSION: No acute cardiopulmonary disease.
--- NOTE | 2023-08-04 08:31 | RAD REPORT ---
EXAM DESCRIPTION: CT - Chest For Pe Angio - 08/04/2023 8:22 am CLINICAL HISTORY: DYSPNEA COMPARISON: Abdomen Pelvis W Contrast dated 12/18/2021 TECHNIQUE: Dynamically enhanced axial 3 mm thick images of the chest were obtained during administra tion of <100> mL Isovue 370 IV contrast. Coronal and oblique reconstruction images were generated and reviewed. Exam utilizes a protocol for optimal evaluation of pulmonary arterial tree. Maximum intensity projections 3D imaging was utilized All CT scans are performed using dose optimization technique as appropriate and may include automated exposure control or mA/KV adjustment according to patient size. FINDINGS: Chest Wall: No suspicious thyroid nodules or pathologic lymphadenopathy. Lungs: Limited by motion. Centrilobular and paraseptal emphysema. No consolidative pneumonia. No talat a identified. Pleura: No significant effusions or pneumothorax. Mediastinum/kacie: No pathologic lymphadenopathy. Circumferential thickened distal esophagus Pulmonary arteries/Aorta: No filling defect identified. No aortic aneurysm. Heart: No significant pericardial effusion. Normal heart size. Upper abdomen: No acute abnormality.Low-density lesion left hepatic lobe measuring approximate 14 mil limeters has benign imaging features and is unchanged. Bones: No acute abnormality. Multilevel degenerative changes are present in the spine. IMPRESSION: Negative for pulmonary embolism to the level of the segmental pulmonary arteries. The baig bsegmental pulmonary arteries cannot be adequately assessed due to motion. Emphysema. No evidence of a consolidative pneumonia or pulmonary edema. The USPTF recommends annual screening for lung cancer with low-dose CT (LDCT) in adults aged 50 to 8 0 years who have a 20 pack-year smoking history and currently smoke or have quit within the past 15 y ears.
[2023-08-04] MEDS ORDERED: LEVALBUTEROL 1.25 MG/3 ML NEB ONE (09:20)
--- NOTE | 2023-08-04 10:17 | EDPHYS ---
Physician Documentation [facility] Name: Júnior Arora Age: 78 yrs Sex: Male : 1945 Arrival Date: 08/04/2023 Time: 06:45 Bed 6 Private MD: ED Physician John David HPI: 08/04 07:22 This 78 yrs old Male presents to ER via EMS with complaints of sob. rn 07:22 The patient has shortness of breath with light activity. Onset: The symptoms/episode rn began/occurred this morning. Duration: The symptoms are intermittent. The patient's shortness of breath is aggravated by exertion, light activity, is alleviated by rest, application of supplemental oxygen. Associated signs and symptoms: Pertinent positives: This patient does not have any pertinent positive signs or symptoms associated with shortness of breath. Pertinent negatives: chest pain, non-productive cough, productive cough, fever, hemoptysis. Severity of symptoms: At their worst the symptoms were moderate in the emergency department the symptoms have improved. The patient has not experienced similar symptoms in the past. Patient reports shortness of breath when woke up to use the bathroom. Patient denies any chest pain. Denies COPD or asthma. Reports lately his blood pressure has been running high and his PCP has been increasing his hypertension medication. Denies syncope. Unable to go back to bed. States took blood pressure medicine prior to coming in. Overall feels better but still reports mild shortness of breath. No chest pain. No abdominal issues.. Historical: - Allergies: 07:20 No Known Allergies; ph - PMHx: 07:20 Diabetes - NIDDM; Esophageal stricture; Hypertension; Hypothyroidism; prostate cancer ph with radiation tx 3 years ago; - Immunization history:: Adult Immunizations unknown. - Family history:: not pertinent. - Social history:: Smoking status: Patient/guardian denies using tobacco, but has a distant history of tobacco abuse. ROS: 07:25 Constitutional: Negative for fever, chills, and weight loss, Cardiovascular: Negative rn for chest pain, palpitations, and edema, Respiratory: Negative for cough, wheezing, and pleuritic chest pain Abdomen/GI: Negative for abdominal pain, nausea, vomiting, diarrhea, and constipation, Back: Negative for injury and pain, MS/Extremity: Negative for injury and deformity, Skin: Negative for injury, rash, and discoloration, Neuro: Negative for headache, weakness, numbness, tingling, and seizure, Exam: 07:25 Constitutional: This is a well developed, well nourished patient who is awake, alert, rn and in no acute distress. Head/Face: Normocephalic, atraumatic. Cardiovascular: Regular rate and rhythm. No pulse deficits. Respiratory: Mild tachypnea. No retractions. No wheezing noted. Abdomen/GI: Soft, non-tender Skin: Warm, dry MS/ Extremity: Pulses equal, no cyanosis. Equal circumference Neuro: Awake and alert, GCS 15 08:44 ECG was reviewed by the Attending Physician. rn Vital Signs: 07:17 BP 185 / 97; Pulse 76; Resp 18; Pulse Ox 96% on R/A; ph 07:32 BP 213 / 91; Pulse 67; Resp 19; Pulse Ox 95% on R/A; ko1 08:17 BP 160 / 84; Pulse 67; Resp 18; Pulse Ox 94% ; ko1 09:55 BP 164 / 79; Pulse 81; Resp 18; Pulse Ox 97% ; ko1 MDM: 07:01 Patient medically screened. rn 08:41 Differential diagnosis: Anemia Anxiety Reaction Bronchitis CHF exacerbation, Chronic rn Obstructive Pulmonary Disease Myocardial Infarction pneumonia, Pneumothorax pulmonary edema, Pulmonary Embolism reactive airway disease. Data reviewed: vital signs, nurses notes, lab test result(s), EKG, radiologic studies. Consideration of Admission/Observation Escalation of care including admission/observation considered. Observation considered, but after speaking to patient has outpatient stress test with Dr. Villalobos tomorrow morning. Joint decision made with patient and to repeat troponin and EKG and if no changes or abnormalities, plan for discharge home with return precautions as has stress test planned for tomorrow. CT negative for PE. Shows emphysema. No other acute findings.. 10:13 Counseling: I had a detailed discussion with the patient and/or guardian regarding the rn historical points, exam findings, and any diagnostic results supporting the discharge/admit diagnosis, lab results, radiology results, the need for outpatient follow up, to return to the emergency department if symptoms worsen or persist or if there are any questions or concerns that arise at home. Response to treatment: the patient's symptoms have markedly improved after treatment, and as a result, I will discharge patient. Special discussion: I discussed with the patient/guardian in detail that at this point there is no indication for admission to the hospital. It is understood, however, that if the symptoms persist or worsen the patient needs to return immediately for re-evaluation. Based on the history and exam findings, there is no indication for further emergent testing or inpatient evaluation. I discussed with the patient/guardian the need to see the continuous absorption process operator for further evaluation of the symptoms. ED course: Repeat troponin negative as well. No acute findings on workup. CT shows emphysema which is expected with his smoking history. No longer smokes. No oxygen requirement. Will DC home with inhaler and has outpatient stress test with Dr. Villalobos scheduled tomorrow. I have personally reviewed all of the results, including but not limited to blood tests and imaging deemed necessary to safely discharge this patient at this time. All results given to and printed out for patient. I personally went over all the results with the patient and answered all questions. Patient will follow-up with PCP and or specialist as discussed. Return precautions given and understood.. 08/04 07:10 Order name: Basic Metabolic Panel; Complete Time: 08: rn 08/04 07:10 Order name: CBC with Diff; Complete Time: 08: rn 08/04 07:10 Order name: LFT's; Complete Time: 08: rn 08/04 07:10 Order name: NT PRO-BNP; Complete Time: 08: rn 08/04 07:10 Order name: PT-INR; Complete Time: 08: rn 08/04 07:10 Order name: Troponin HS; Complete Time: 08: rn 08/04 09:21 Order name: Troponin High Sensitivity; Complete Time: 10:13 rn 08/04 07:10 Order name: XRAY Chest (1 view); Complete Time: 08:32 rn 08/04 07:25 Order name: CT Chest For PE Angio; Complete Time: 08:32 rn 08/04 07:10 Order name: EKG; Complete Time: 07:11 rn 08/04 07:10 Order name: Cardiac monitoring; Complete Time: 07:30 rn 08/04 07:10 Order name: EKG - Nurse/Tech; Complete Time: 07:30 rn 08/04 07:10 Order name: IV Saline Lock; Complete Time: : rn 08/04 07:10 Order name: Labs collected and sent; Complete Time: 07:30 rn 08/04 07:10 Order name: O2 Per Protocol; Complete Time: : rn 08/04 07:10 Order name: O2 Sat Monitoring; Complete Time: : rn EC:44 Rate is 72 beats/min. Rhythm is regular. QRS [place] is Normal. MD interval is normal. QRS rn interval is normal. QT interval is normal. No Q waves. T waves are Inverted in lead V2. T waves are Flattened in lead I. No ST changes noted. Clinical impression: NSR w/ Non-specific ST/T Changes. Interpreted by me. Reviewed by me. Administered Medications: 09:09 Drug: Levalbuterol Inhalation 1.25 mg Inhalation once Route: Inhalation; ko1 Disposition Summary: 08/04/23 10:15 Discharge Ordered Notes: Location: Home rn Problem: new rn Symptoms: have improved rn Condition: Stable rn Diagnosis - Dyspnea, unspecified rn - Emphysema, unspecified rn Followup: rn - With: Gary Villalobos MD - When: Tomorrow - Reason: Further diagnostic work-up, Recheck today's complaints, Re-evaluation by your physician Discharge Instructions: - Discharge Summary Sheet rn - Shortness of Breath, Adult rn Forms: - Medication Reconciliation Form rn - Thank You Letter rn - Antibiotic glazier metal furniture - Prescription Opioid Use rn - Patient Portal Instructions rn - Leadership Thank You Letter rn Prescriptions: - albuterol sulfate 90 mcg/actuation Inhalation HFA Aerosol Inhaler - inhale 2 inhalation INHALATION route every 4 to 6 hours As needed as needed for rn bronchospasm; administer via ventilator; 1 unit; Refills: 0, Product Selection Permitted Signatures: Dispatcher [employer] John Kim MD MD rn Hall, Patricia RN RN Magdalena Perry RN RN ko1
--- NOTE | 2023-08-04 10:17 | ER ---
Nurse's Notes [facility] Name: Júnior Arora Age: 78 yrs Sex: Male : 1945 Arrival Date: 08/04/2023 Time: 06:45 Bed 6 Private MD: Diagnosis: Dyspnea, unspecified;Emphysema, unspecified Presentation: 08/04 07:17 Chief complaint: EMS states: Shortness of breath since 0500 this morning, also c/o low ph back pain, denies chest pain, 100% RA, hypertensive w/ BP 200s/100s, 20G to LAC. Coronavirus screen: Vaccine status: Patient reports receiving the 2nd dose of the covid vaccine. Ebola Screen: No symptoms or risks identified at this time. Initial Sepsis Screen: Does the patient meet any 2 criteria? No. Patient's initial sepsis screen is negative. Does the patient have a suspected source of infection? No. Patient's initial sepsis screen is negative. Risk Assessment: Do you want to hurt yourself or someone else? Patient reports no desire to harm self or others. Onset of symptoms was August 04, 2023. 07:17 Method Of Arrival: EMS: [facility] ph 07:17 Acuity: JUAN PABLO 3 ph Historical: - Allergies: 07:20 No Known Allergies; ph - PMHx: 07:20 Diabetes - NIDDM; Esophageal stricture; Hypertension; Hypothyroidism; prostate cancer ph with radiation tx 3 years ago; - Immunization history:: Adult Immunizations unknown. - Family history:: not pertinent. - Social history:: Smoking status: Patient/guardian denies using tobacco, but has a distant history of tobacco abuse. Screenin:32 [facility] ED Fall Risk Assessment (Adult) History of falling in the last 3 months, ko1 including since admission No falls in past 3 months (0 pts) Confusion or Disorientation No (0 pts) Intoxicated or Sedated No (0 pts) Impaired Gait No (0 pts) Mobility Assist Device Used No (0 pt) Altered Elimination No (0 pt) Score/Fall Risk Level 0 - 2 = Low Risk Oriented to surroundings, Maintained a safe environment, Educated pt \T\ family on fall prevention, incl call for assistance when getting out of bed, Assessed \T\ reinforced patient's understanding of fall precautions, Provided non-skid footwear, Hourly rounding (assess needs \T\ fall precautionary measures) done, Used ambulatory aids as needed (educated on \T\ assisted with), Used gait belt as appropriate. Abuse screen: Denies threats or abuse. Denies injuries from another. Nutritional screening: No deficits noted. Tuberculosis screening: No symptoms or risk factors identified. Assessment: 07:32 General: Appears in no apparent distress. comfortable, Behavior is calm, cooperative, ko1 appropriate for age. Pain: Denies pain. Neuro: No deficits noted. Cardiovascular: No deficits noted. Respiratory: Reports shortness of breath that is much better now. GI: No deficits noted. : No deficits noted. EENT: No deficits noted. Derm: No deficits noted. Musculoskeletal: No deficits noted. Vital Signs: 07:17 BP 185 / 97; Pulse 76; Resp 18; Pulse Ox 96% on R/A; ph 07:32 BP 213 / 91; Pulse 67; Resp 19; Pulse Ox 95% on R/A; ko1 08:17 BP 160 / 84; Pulse 67; Resp 18; Pulse Ox 94% ; ko1 09:55 BP 164 / 79; Pulse 81; Resp 18; Pulse Ox 97% ; ko1 ED Course: 07:01 Patient arrived in ED. lg3 07:01 John David MD is Attending Physician. rn 07:13 Magdalena Chew, VALERIE is Primary Nurse. ko1 07:20 Triage completed. ph 07:21 Arm band placed on Patient placed in an exam room, on a stretcher. ph 07:30 Maintain EMS IV. Dressing intact. Good blood return noted. Site clean \T\ dry. Gauge \T\ ko 1 site: 20g L AC. Patient maintains SpO2 saturation greater than 95% on room air. 07:31 Basic Metabolic Panel Sent. ko1 07:31 CBC with Diff Sent. ko1 07:31 LFT's Sent. ko1 07:31 NT PRO-BNP Sent. ko1 07:31 PT-INR Sent. ko1 07:31 Troponin HS Sent. ko1 07:32 Patient has correct armband on for positive identification. Bed in low position. Call ko1 light in reach. Side rails up X 1. Provided Education on: na. Client placed on continuous cardiac and pulse oximetry monitoring. NIBP monitoring applied. laboratory monitor on. Door closed. Noise minimized. Warm blanket given. 07:32 No provider procedures requiring assistance completed. ko1 07:54 XRAY Chest (1 view) In Process Unspecified. EDMS 08:23 CT Chest For PE Angio In Process Unspecified. EDMS 10:15 Gary Villalobos MD is Referral Physician. rn 10:19 IV discontinued. ko1 Administered Medications: 09:09 Drug: Levalbuterol Inhalation 1.25 mg Inhalation once Route: Inhalation; ko1 Medication: 07:32 VIS not applicable for this client. ko1 Outcome: 10:15 Discharge ordered by . rn 10:19 Discharged to home ambulatory, with family, ko1 10:19 Condition: improved 10:19 Discharge instructions given to patient, family, Instructed on discharge instructions, follow up and referral plans. medication usage, Demonstrated understanding of instructions, follow-up care, medications, Prescriptions given X 1, 10:23 Patient left the ED. ko1 Signatures: Dispatcher [employer] EDMS John David MD MD rn Hall, Patricia, RN RN ph Gibson, Lacie RN RN 3 Magdalena Chew RN RN ko1
[2023-08-04 10:33] VITALS: BP 164/79; O2SAT 97
--- NOTE | 2023-08-05 13:32 | EKG ---
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
== END 2023-08-04 10:23 | disposition home or self-care (01) ==
LOC: ER 06:45
DX: J43.9 Emphysema, unspecified (principal); E11.9 Type 2 diabetes mellitus without complications; I10 Essential (primary) hypertension
CPT/HCPCS: 93005; 85025; 80048; 36415; 85610; 80076; 84484 ×2; 83880; 71275; 71045; 99285; Q9967; J7614